=== PATIENT | female | born 1955 | race Caucasian/White ===

== ENCOUNTER 2019-06-30 11:00 | Inpatient (IN) | payer OTHER ==
[2019-07-18 12:54] VITALS: BMI 39.0
[2019-07-21] MEDS ORDERED: HEPARIN NA (PORCINE) 5,000 UNITS/ML 1ML VIAL ONE (07:16)
[2019-07-21] MEDS ORDERED: THROMBIN (BOVINE) 5,000 UNIT VIAL TP ONE (07:16)
[2019-07-21] MEDS ORDERED: BENZOIN TINCTURE SWABSTICK TP ONE (07:16)
[2019-07-21] MEDS ORDERED: ROCURONIUM BROMIDE 50 MG/5 ML SYRINGE ONE (07:30)
[2019-07-21] MEDS ORDERED: PROPOFOL 20 ML ONE ×4 (07:30)
[2019-07-21] MEDS ORDERED: KETAMINE HCL 200 MG/20 ML VIAL ONE (07:30)
[2019-07-21] MEDS ORDERED: SUCCINYLCHOLINE CHLORIDE 200 MG/10 ML SYRINGE ONE (07:30)
[2019-07-21] MEDS ORDERED: ceFAZolin SODIUM 1 GM VIAL ONE ×2 (07:31→13:00)
[2019-07-21] MEDS ORDERED: VANCOMYCIN 1,000 MG VIAL (RESTRICTED TO ID ONLY) ONE (07:31)
[2019-07-21] MEDS ORDERED: ONDANSETRON 4 MG/2 ML VIAL ONE (07:31)
[2019-07-21] MEDS ORDERED: LIDOCAINE HCL/PF 2% SDV 5ML VIAL ONE ×2 (07:31→07:32)
[2019-07-21] MEDS ORDERED: DEXAMETHASONE SOD PHOSPHATE 4 MG/1 ML VIAL ONE (07:31)
[2019-07-21] MEDS ORDERED: SODIUM CHLORIDE 0.9% P/F 10 ML VIAL IJ ONE (07:31)
[2019-07-21] MEDS ORDERED: MIDAZOLAM HCL 2 MG/2 ML SINGLE DOSE VIAL ONE (07:41)
[2019-07-21] MEDS ORDERED: IBUPROFEN 800 MG/8 ML IJ IVPB ONE (08:20)
[2019-07-21] MEDS ORDERED: ONDANSETRON 4 MG/2 ML VIAL IVPUSH PRN ×2 (08:55→10:28)
[2019-07-21] MEDS ORDERED: oxyCODONE HCL 5 MG TABLET PO PRN (08:55)
--- NOTE | 2019-07-21 10:26 | PN ---
Progress Note (short form) - Note Progress Note: 63F pre-op for thoraco-lumbar instrumented fusion; case cancelled due to florid B/L lower extremity cellulitis. -Pain control. -DVT PPx: -Chemical: Hold as patient is pre-op for spine surgery. -Mechanical: NONE d/t LE swelling and lymphedema. -Incentive spirometry q15 min. -Empiric antibiotics. -PT/OT/Rehab, OOB. -WBAT LLE. -f/u all labs: CBC, Chem 20, ESR, CRP. -Diabetic Diet as tolerated. -Care per medical hospitalist: Dr. Ochoa. -Medical plan discussed with and understood by patient. -Will follow. Jordan Vivas MD (Orthopaedic Surgery).
[2019-07-21] MEDS ORDERED: LACTATED RINGERS SOLUTION 1,000 ML IV SCH (10:30)
[2019-07-21] MEDS ORDERED: IPRATROPIUM BR 0.02% 0.5 MG/2.5 ML VIAL.NEB. NEB PRN (10:33)
[2019-07-21 11:09] LABS: BASO % 0.6 % (0-2.0); EOS % 0.7 % (0-4.5); HEMATOCRIT 32.9 % (32.4-45.2); HEMOGLOBIN 10.6 GM/dL (10.7-15.3); LYMPH % 26.2 % (8-40); MCH 26.2 pg (25.7-33.7); MCHC 32.2 g/dl (32.0-36.0); MEAN CELL VOLUME 81.4 fl (80-96); MEAN PLT VOLUME 7.2 fl (7.5-11.1); MONO % 9.7 % (3.8-10.2); NEUT % 62.8 % (42.8-82.8); PLATELET COUNT 138 K/MM3 (134-434); RBC 4.05 M/mm3 (3.60-5.2); WHITE BLOOD COUNT 4.5 K/mm3 (4.0-10.0)
[2019-07-21 11:37] LABS: ALBUMIN 3.7 g/dl (3.4-5.0); BILIRUBIN,TOTAL 0.4 mg/dL (0.2-1); BLOOD UREA NITROGEN 41.7 mg/dL (7-18); CALCIUM 9.2 mg/dL (8.5-10.1); CREATININE 1.3 mg/dL (0.55-1.3); POTASSIUM 4.2 mmol/L (3.5-5.1); TOT PROT 6.3 g/dl (6.4-8.2)
[2019-07-21] MEDS: ceFAZolin 2 GRAM PREMIX BAG IVPB SCH ×3 (13:05→22:12)
[2019-07-21 13:07] LABS: ANISOCYTOSIS 1+; MACROCYTOSIS 1+; PLATELET ESTIMATE DECREASED
[2019-07-21] MEDS ORDERED: PATIENT'S OWN MEDICATION (NON-FORMULARY) (Benzonatate [Benzonatate] 200 MG) PO SCH (14:00)
[2019-07-21] MEDS ORDERED: PATIENT'S OWN MEDICATION (NON-FORMULARY) (Ipratropium/Albuterol Sulfate [Combivent Respima IH SCH (14:00)
[2019-07-21] MEDS: LACTATED RINGERS SOLUTION 1,000 ML IV SCH (14:51)
[2019-07-21] MEDS ORDERED: AMPICILLIN NA/SULBACTAM NA 3 GM in SODIUM CHLORIDE 100 ML IVPB SCH (15:00)
[2019-07-21] MEDS ORDERED: PT OWN MED DRAWER 7, Y5N ONE (15:29)
[2019-07-21] MEDS: TIZANIDINE HCL 2 MG TABLET PO SCH ×2 (19:02→22:12)
--- NOTE | 2019-07-21 21:57 | CONSULT ---
Consult Consult Specialty:: IM Reason for Consultation:: POST op medical management - History of Present Illness Chief Complaint: back pain - History Source History Provided By: Patient Limitations to Obtaining History: No Limitations - Alcohol/Substance Use Hx Alcohol Use: Yes (rarely) - Smoking History Smoking history: Never smoked Home Medications - Allergies Allergies/Adverse Reactions: Allergies Allergy/AdvReac Type Severity Reaction Status Date / Time amitriptyline [From Elavil] Allergy Mild Rash Verified 07/21/19 07:27 ketorolac [From Toradol] Allergy Mild Rash Verified 07/21/19 07:27 - Home Medications Home Medications: Ambulatory Orders Aripiprazole [Abilify] 1 tab PO HS 07/18/19 Aspirin [ASA -] 81 mg PO DAILY 07/18/19 Atorvastatin Ca [Lipitor] 20 mg PO DAILY 07/18/19 Benzonatate 200 mg PO TID 07/18/19 Budesonide/Formeterol Fumarate [SYMBICORT 160/4.5mcg -] 2 inh PO BID 07/18/19 Cholecalciferol (Vitamin D3) [Vitamin D3 -] 1,000 unit PO DAILY 07/18/19 Cyanocobalamin [Vitamin B12 -] 1,000 mcg PO DAILY 07/18/19 Empagliflozin [Jardiance] 10 mg PO DAILY 07/18/19 Ferrous Sulfate [Feosol] 325 mg PO DAILY 07/18/19 Fluticasone Propionate [Allergy Relief] 15.8 ml NS BID 07/18/19 Hydrochlorothiazide [Hctz -] 12.5 mg PO DAILY 07/18/19 Hydroxyzine HCl 25 mg PO HS 07/18/19 Insulin Glargine,Hum.rec.anlog [Lantus Solostar PEN (NF)] 10 units SQ BID Ipratropium 0.02% Nebulizer [Atrovent 0.02% Nebulizer -] 1 amp NEB QID PRN 07/18 Ipratropium/Albuterol Sulfate [Combivent Respimat Inhal [place]] 4 gm IH QID 07/18 Liraglutide [Victoza -] 0.6 mg SQ DAILY@0700 07/18/19 Loratadine [Claritin] 10 mg PO DAILY 07/18/19 Lubiprostone [Amitiza] 24 mcg PO BID 07/18/19 Mupirocin Cream [Bactroban 2% Cream -] 1 applic TP PRN 07/18/19 Paroxetine HCl 10 mg PO DAILY 07/18/19 Tizanidine HCl 2 mg PO TID 07/18/19 Torsemide [Demadex] 10 mg PO DAILY 07/18/19 Lisinopril 5 mg PO DAILY 07/21/19 Family Disease History - Family Disease History Family History: Unremarkable Review of Systems - Review of Systems Eyes: reports: No Symptoms HENT: reports: No Symptoms Neck: reports: No Symptoms Cardiovascular: reports: No Symptoms Respiratory: reports: No Symptoms Gastrointestinal: reports: No Symptoms Genitourinary: reports: No Symptoms Musculoskeletal: reports: Back Pain Integumentary: reports: Change in Color, Erythema Neurological: reports: No Symptoms Endocrine: reports: No Symptoms Hematology/Lymphatic: reports: No Symptoms Psychiatric: reports: No Symptoms Physical Exam Vital Signs: Vital Signs Temperature 98.1 F 07/21/19 20:10 Pulse Rate 71 07/21/19 20:10 Respiratory Rate 20 07/21/19 20:12 Blood Pressure 107/55 L 07/21/19 20:10 O2 Sat by Pulse Oximetry (%) 96 07/21/19 13:00 Constitutional: Yes: Anxious Eyes: Yes: WNL HENT: Yes: WNL Neck: Yes: WNL Cardiovascular: Yes: WNL Respiratory: Yes: WNL Gastrointestinal: Yes: WNL ...Rectal Exam: Yes: Deferred Renal/: Yes: WNL Musculoskeletal: Yes: Back Pain Extremities: Yes: WNL Edema: No Peripheral Pulses WNL: Yes Integumentary: Yes: WNL Neurological: Yes: WNL Labs: CBC, BMP 07/21/19 11:00 07/21/19 11:00 Assessment/Plan 63F pre-op for thoraco-lumbar instrumented fusion. case cancelled due to florid B/L lower extremity cellulitis. cont IV antibiotics. ID clearance requested. -cont pain management. incentive spirometry. -GI, DVT prophylaxis. mechanical only. -HLD: on lipitor. -HTN: on HCTZ, lisinopril. -type 2 DM: on levemir, victoza -chronic COPD: cont bronchodilators. -major anxiety and depression: on abilify, paxil. -chronic diastolic CHF: cont lasix, lisinopril -oral diet -OOB as tolerated -will f/u in AM
[2019-07-21] MEDS: hydrOXYzine HCL 25 MG TABLET (FP) PO SCH (22:07)
[2019-07-21] MEDS: ATORVASTATIN CA 20 MG TABLET (FP) PO SCH (22:07)
[2019-07-21] MEDS: ARIPiprazole 5 MG TABLET (FP) PO SCH (22:22)
[2019-07-21] MEDS: FLUTICASONE PROP 0.05% 16 GM NASAL SPRAY NS SCH (22:42)
[2019-07-21] MEDS: BUDESONIDE/FORMETEROL FUMARATE 160/4.5 mcg INHALER IH SCH (22:42)
[2019-07-21] MEDS: INSULIN (LEVEMIR) 100 UNITS/ML UNITS SQ SCH (23:22)
[2019-07-22] MEDS: TIZANIDINE HCL 2 MG TABLET PO SCH ×3 (06:38→22:26)
[2019-07-22] MEDS: ceFAZolin 2 GRAM PREMIX BAG IVPB SCH ×3 (06:38→22:26)
[2019-07-22] MEDS: LACTATED RINGERS SOLUTION 1,000 ML IV SCH ×2 (06:41→09:38)
[2019-07-22] MEDS: INSULIN (LEVEMIR) 100 UNITS/ML UNITS SQ SCH ×2 (06:48→22:31)
[2019-07-22] MEDS: LIRAGLUTIDE 0.6 MG/0.1 ML PEN.INJCTR SQ SCH (06:49)
[2019-07-22 07:08] LABS: BASO % 0.5 % (0-2.0); EOS % 1.7 % (0-4.5); HEMOGLOBIN 10.2 GM/dL (10.7-15.3); LYMPH % 39.2 % (8-40); MEAN CELL VOLUME 81.2 fl (80-96); MEAN PLT VOLUME 7.6 fl (7.5-11.1); MONO % 10.7 % (3.8-10.2); NEUT % 47.9 % (42.8-82.8); PLATELET COUNT 139 K/MM3 (134-434); RBC 3.94 M/mm3 (3.60-5.2); RDW 23.6 % (11.6-15.6); WHITE BLOOD COUNT 3.8 K/mm3 (4.0-10.0)
[2019-07-22 07:21] LABS: BLOOD UREA NITROGEN 33.4 mg/dL (7-18); CALCIUM 8.9 mg/dL (8.5-10.1); CREATININE 1.2 mg/dL (0.55-1.3); POTASSIUM 3.9 mmol/L (3.5-5.1)
[2019-07-22] MEDS: HYDROCHLOROTHIAZIDE 12.5 MG CAPSULE (FP) PO SCH (09:36)
[2019-07-22] MEDS: LISINOPRIL 5 MG TABLET (FP) PO SCH (09:36)
[2019-07-22] MEDS: PARoxetine HCL 10 MG TABLET PO SCH (09:38)
[2019-07-22] MEDS: TORSEMIDE 10 MG TABLET PO SCH (09:38)
[2019-07-22] MEDS ORDERED: PATIENT'S OWN MEDICATION (NON-FORMULARY) (Empagliflozin [Jardiance] 10 MG) PO SCH (10:00)
--- NOTE | 2019-07-22 10:09 | PN ---
Progress Note, Physician Chief Complaint: back pain - Current Medication List Current Medications: Active Medications Aripiprazole (Abilify) 5 mg PO HS [facility] Last Admin: 07/21/19 22:22 Dose: Not Given Atorvastatin Calcium (Lipitor -) 20 mg PO HS [facility] Last Admin: 07/21/19 22:07 Dose: 20 mg Budesonide/Formoterol Fumarate (Symbicort 160/4.5mcg -) 2 puff IH BID [facility] Last Admin: 07/21/19 22:42 Dose: Not Given Cefazolin Sodium/Dextrose (Ancef 2 Gm Premixed Ivpb -) 2 gm IVPB TID [facility] Last Admin: 07/22/19 06:38 Dose: 2 gm Fentanyl (Sublimaze Injection -) 50 mcg IVPUSH [id number] PRN PRN Reason: PAIN-PACU ORDER X 4 DOSES ONLY Fluticasone Propionate (Flonase -) 1 spray NS BID [facility] Last Admin: 07/21/19 22:42 Dose: Not Given Hydrochlorothiazide (Hctz -) 12.5 mg PO DAILY [facility] Last Admin: 07/22/19 09:36 Dose: 12.5 mg Hydroxyzine HCl (Atarax -) 25 mg PO [facility] Last Admin: 07/21/19 22:07 Dose: 25 mg Lactated Ringer's (Lactated Ringers Solution) 1,000 mls @ 75 mls/hr IV ASDIR [facility] Last Admin: 07/22/19 09:38 Dose: Not Given Insulin Detemir (Levemir Vial) 10 units SQ BID@0700,2200 [facility] Last Admin: 07/22/19 06:48 Dose: Not Given Ipratropium [place] (Atrovent 0.02% Nebulizer -) 1 amp NEB Q6H PRN PRN Reason: ASTHMA Liraglutide (Victoza -) 0.6 mg SQ DAILY@0700 [facility] Last Admin: 07/22/19 06:49 Dose: Not Given Lisinopril (Prinivil) 5 mg PO DAILY [facility] Last Admin: 07/22/19 09:36 Dose: 5 mg Mupirocin (Bactroban 2% Cream -) 1 applic TP PRN [facility] Non-Formulary Medication (Benzonatate [Benzonatate]) 200 mg PO TID [facility] Non-Formulary Medication (Empagliflozin [Jardiance]) 10 mg PO DAILY [facility] Non-Formulary Medication (Ipratropium/Albuterol Sulfate [Combivent Respimat 20- 100 Mcg]) 4 gm IH QID [facility] Non-Formulary Medication (Lubiprostone [Amitiza]) 24 mcg PO BID [facility] Ondansetron HCl (Zofran Injection) 4 mg IVPUSH Q6H PRN PRN Reason: NAUSEA AND/OR VOMITING Paroxetine HCl (Paxil -) 10 mg PO DAILY [facility] Last Admin: 07/22/19 09:38 Dose: 10 mg Tizanidine HCl (Tizanidine Hcl) 2 mg PO TID [facility] Last Admin: 07/22/19 06:38 Dose: 2 mg Torsemide (Demadex -) 10 mg PO DAILY [facility] Last Admin: 07/22/19 09:38 Dose: 10 mg - Objective Vital Signs: Vital Signs Temperature 98.2 F 07/22/19 06:00 Pulse Rate 64 07/22/19 06:00 Respiratory Rate 20 07/22/19 06:00 Blood Pressure 112/61 07/22/19 06:00 O2 Sat by Pulse Oximetry (%) 96 07/21/19 13:00 Constitutional: Yes: Well Nourished Eyes: Yes: WNL HENT: Yes: WNL Neck: Yes: WNL Cardiovascular: Yes: WNL Respiratory: Yes: WNL Gastrointestinal: Yes: WNL ...Rectal Exam: Yes: WNL Genitourinary: Yes: WNL Musculoskeletal: Yes: Back Pain Extremities: Yes: Erythema Edema: Yes Peripheral Pulses WNL: No Integumentary: Yes: WNL Neurological: Yes: WNL ...Motor Strength: WNL Psychiatric: Yes: WNL Labs: CBC, BMP 07/22/19 06:30 07/22/19 06:30 Assessment/Plan 63F pre-op for thoraco-lumbar instrumented fusion. case cancelled due to florid B/L lower extremity cellulitis. cont IV antibiotics. ID clearance requested. -cont pain management. incentive spirometry. -GI, DVT prophylaxis. mechanical only. -HLD: on lipitor. -HTN: on HCTZ, lisinopril. -type 2 DM: on levemir, victoza -chronic COPD: cont bronchodilators. -major anxiety and depression: on abilify, paxil. -chronic diastolic CHF: cont torsemide, lisinopril -oral diet -OOB as tolerated -assessment and plan discussed with pt . labs and meds reviewed phone calls answered throughout the day.
[2019-07-22 10:53] LABS: BASO % 0.7 % (0-2.0); EOS % 1.2 % (0-4.5); HEMATOCRIT 33.4 % (32.4-45.2); HEMOGLOBIN 10.7 GM/dL (10.7-15.3); LYMPH % 26.7 % (8-40); MCH 26.3 pg (25.7-33.7); MCHC 32.2 g/dl (32.0-36.0); MEAN CELL VOLUME 81.7 fl (80-96); MEAN PLT VOLUME 7.6 fl (7.5-11.1); MONO % 8.4 % (3.8-10.2); PLATELET COUNT 143 K/MM3 (134-434); RBC 4.08 M/mm3 (3.60-5.2); RDW 23.3 % (11.6-15.6); WHITE BLOOD COUNT 3.5 K/mm3 (4.0-10.0)
[2019-07-22] MEDS: BUDESONIDE/FORMETEROL FUMARATE 160/4.5 mcg INHALER IH SCH ×2 (11:17→22:31)
--- NOTE | 2019-07-22 11:17 | CON.ID ---
Consult Consult Specialty:: infectious diseases Referred by:: Reason for Consultation:: b/l cellulitis of the leg - History of Present Illness Chief Complaint: back pain,b/l cellulitis of the leg History of Present Illness: 63F pre-op for thoraco-lumbar instrumented fusion,patient mentions that she has had back pain for some time and not able to get up she was seen by neurosurgery and planned for thoraco lumbar fusion. patient also has b/l cellulitis of the leg and this has been going on for 3 months and patient did receive abx which helped her a bit and then her legs again became cellulitis she has been using radha wraps on it patient is planned to undergo surgery and patient needs to be treated for cellulits currently patient is stable denies any fever - History Source History Provided By: Patient Limitations to Obtaining History: No Limitations - Alcohol/Substance Use Hx Alcohol Use: Yes (rarely) - Smoking History Smoking history: Never smoked Home Medications - Allergies Allergies/Adverse Reactions: Allergies Allergy/AdvReac Type Severity Reaction Status Date / Time amitriptyline [From Elavil] Allergy Mild Rash Verified 07/21/19 07:27 ketorolac [From Toradol] Allergy Mild Rash Verified 07/21/19 07:27 - Home Medications Home Medications: Ambulatory Orders Aripiprazole [Abilify] 1 tab PO HS 07/18/19 Aspirin [ASA -] 81 mg PO DAILY 07/18/19 Atorvastatin Ca [Lipitor] 20 mg PO DAILY 07/18/19 Benzonatate 200 mg PO TID 07/18/19 Budesonide/Formeterol Fumarate [SYMBICORT 160/4.5mcg -] 2 inh PO BID 07/18/19 Cholecalciferol (Vitamin D3) [Vitamin D3 -] 1,000 unit PO DAILY 07/18/19 Cyanocobalamin [Vitamin B12 -] 1,000 mcg PO DAILY 07/18/19 Empagliflozin [Jardiance] 10 mg PO DAILY 07/18/19 Ferrous Sulfate [Feosol] 325 mg PO DAILY 07/18/19 Fluticasone Propionate [Allergy Relief] 15.8 ml NS BID 07/18/19 Hydrochlorothiazide [Hctz -] 12.5 mg PO DAILY 07/18/19 Hydroxyzine HCl 25 mg PO HS 07/18/19 Insulin Glargine,Hum.rec.anlog [Lantus Solostar PEN (NF)] 10 units SQ BID Ipratropium 0.02% Nebulizer [Atrovent 0.02% Nebulizer -] 1 amp NEB QID PRN 07/18 Ipratropium/Albuterol Sulfate [Combivent Respimat Inhal [place]] 4 gm IH QID 07/18 Liraglutide [Victoza -] 0.6 mg SQ DAILY@0700 07/18/19 Loratadine [Claritin] 10 mg PO DAILY 07/18/19 Lubiprostone [Amitiza] 24 mcg PO BID 07/18/19 Mupirocin Cream [Bactroban 2% Cream -] 1 applic TP PRN 07/18/19 Paroxetine HCl 10 mg PO DAILY 07/18/19 Tizanidine HCl 2 mg PO TID 07/18/19 Torsemide [Demadex] 10 mg PO DAILY 07/18/19 Lisinopril 5 mg PO DAILY 07/21/19 Review of Systems - Review of Systems Constitutional: reports: Other Eyes: reports: No Symptoms HENT: reports: No Symptoms Neck: reports: No Symptoms Cardiovascular: reports: No Symptoms Respiratory: reports: No Symptoms Gastrointestinal: reports: No Symptoms Genitourinary: reports: No Symptoms Musculoskeletal: reports: Back Pain Integumentary: reports: Change in Color, Erythema, Other Neurological: reports: No Symptoms Endocrine: reports: No Symptoms Hematology/Lymphatic: reports: No Symptoms Psychiatric: reports: No Symptoms Physical Exam Vital Signs: Vital Signs Temperature 98.4 F 07/22/19 10:00 Pulse Rate 66 07/22/19 10:00 Respiratory Rate 20 07/22/19 10:00 Blood Pressure 121/73 07/22/19 10:00 O2 Sat by Pulse Oximetry (%) 96 07/21/19 13:00 Constitutional: Yes: Well Nourished, Calm, Mild Distress Eyes: Yes: Conjunctiva Clear Cardiovascular: Yes: Regular Rate and Rhythm Respiratory: Yes: Regular, CTA Bilaterally Gastrointestinal: Yes: Normal Bowel Sounds, Soft Musculoskeletal: Yes: Back Pain Extremities: Yes: Other (b/l erythema left worse than right) Integumentary: Yes: Erythema (b/l erythema of the legs), Venous Stasis Changes Neurological: Yes: Alert, Oriented Psychiatric: Yes: Alert, Oriented Labs: CBC, BMP 07/22/19 09:55 Assessment/Plan this patient with multiple medical issues now coming with cellulitis of the leg who is planned for surgery patient has pretty bad cellulitis of the leg patient has been started on anceff at the moment surgery should be on hold till her cellulitis improves we will continue current abx if the leg does not improve we will add vanco and see continue abx monitor restst as per the team
[2019-07-22] MEDS: FLUTICASONE PROP 0.05% 16 GM NASAL SPRAY NS SCH ×2 (11:18→22:31)
[2019-07-22 11:29] LABS: ALBUMIN 3.6 g/dl (3.4-5.0); ALK PHOS 87 U/L (45-117); ANION GAP 8 MMOL/L (8-16); BILIRUBIN,TOTAL 0.3 mg/dL (0.2-1); BLOOD UREA NITROGEN 29.6 mg/dL (7-18); CALCIUM 8.7 mg/dL (8.5-10.1); CHLORIDE 100 mmol/L (98-107); CO2 29 mmol/L (21-32); CREATININE 1.2 mg/dL (0.55-1.3); GLUCOSE,RANDOM 129 mg/dL (74-106); POTASSIUM 4.1 mmol/L (3.5-5.1); SGOT/AST 21 U/L (15-37); SGPT/ALT 19 U/L (13-61); SODIUM 136 mmol/L (136-145); TOT PROT 6.3 g/dl (6.4-8.2)
[2019-07-22] MEDS: oxyCODONE HCL 5 MG TABLET PO PRN ×2 (11:43→20:20)
[2019-07-22] MEDS ORDERED: PT OWN MED DRAWER 7, Y5N ONE (22:22)
[2019-07-22] MEDS: ARIPiprazole 5 MG TABLET (FP) PO SCH (22:25)
[2019-07-22] MEDS: ATORVASTATIN CA 20 MG TABLET (FP) PO SCH (22:25)
[2019-07-22] MEDS: hydrOXYzine HCL 25 MG TABLET (FP) PO SCH (22:27)
[2019-07-23] MEDS: INSULIN (LEVEMIR) 100 UNITS/ML UNITS SQ SCH ×2 (06:42→21:08)
[2019-07-23] MEDS: ceFAZolin 2 GRAM PREMIX BAG IVPB SCH ×3 (06:42→21:09)
[2019-07-23] MEDS: TIZANIDINE HCL 2 MG TABLET PO SCH ×3 (06:42→21:19)
[2019-07-23] MEDS: LIRAGLUTIDE 0.6 MG/0.1 ML PEN.INJCTR SQ SCH (06:44)
[2019-07-23] MEDS: LACTATED RINGERS SOLUTION 1,000 ML IV SCH ×2 (06:46→08:55)
[2019-07-23] MEDS ORDERED: PT OWN MED DRAWER 7, Y5N ONE ×3 (06:52→21:06)
[2019-07-23] MEDS: HYDROCHLOROTHIAZIDE 12.5 MG CAPSULE (FP) PO SCH (09:42)
[2019-07-23] MEDS: FLUTICASONE PROP 0.05% 16 GM NASAL SPRAY NS SCH ×2 (09:43→21:21)
[2019-07-23] MEDS: LISINOPRIL 5 MG TABLET (FP) PO SCH (09:43)
[2019-07-23] MEDS: BUDESONIDE/FORMETEROL FUMARATE 160/4.5 mcg INHALER IH SCH ×2 (09:43→21:21)
[2019-07-23] MEDS: PARoxetine HCL 10 MG TABLET PO SCH (09:43)
[2019-07-23] MEDS: TORSEMIDE 10 MG TABLET PO SCH (09:43)
[2019-07-23] MEDS: oxyCODONE HCL 5 MG TABLET PO PRN ×2 (09:51→20:07)
[2019-07-23 10:13] LABS: BASO % 0.7 % (0-2.0); EOS % 1.2 % (0-4.5); HEMOGLOBIN 11.4 GM/dL (10.7-15.3); LYMPH % 34.5 % (8-40); MCH 26.6 pg (25.7-33.7); MCHC 32.7 g/dl (32.0-36.0); MEAN CELL VOLUME 81.4 fl (80-96); MEAN PLT VOLUME 7.6 fl (7.5-11.1); MONO % 8.7 % (3.8-10.2); NEUT % 54.9 % (42.8-82.8); PLATELET COUNT 145 K/MM3 (134-434); RDW 23.5 % (11.6-15.6); WHITE BLOOD COUNT 3.4 K/mm3 (4.0-10.0)
[2019-07-23 10:31] LABS: ALBUMIN 3.7 g/dl (3.4-5.0); ALK PHOS 97 U/L (45-117); ANION GAP 7 MMOL/L (8-16); BILIRUBIN,TOTAL 0.4 mg/dL (0.2-1); BLOOD UREA NITROGEN 26.2 mg/dL (7-18); CALCIUM 8.9 mg/dL (8.5-10.1); CHLORIDE 99 mmol/L (98-107); CO2 30 mmol/L (21-32); CREATININE 1.1 mg/dL (0.55-1.3); GLUCOSE,RANDOM 131 mg/dL (74-106); SGOT/AST 23 U/L (15-37); SGPT/ALT 13 U/L (13-61); SODIUM 136 mmol/L (136-145); TOT PROT 6.6 g/dl (6.4-8.2)
--- NOTE | 2019-07-23 17:46 | PN ---
Progress Note, Physician History of Present Illness: patient doing well legs ae starting to improve - Current Medication List Current Medications: Active Medications Aripiprazole (Abilify) 5 mg PO HS [facility] Last Admin: 07/22/19 22:25 Dose: 5 mg Atorvastatin Calcium (Lipitor -) 20 mg PO HS [facility] Last Admin: 07/22/19 22:25 Dose: 20 mg Budesonide/Formoterol Fumarate (Symbicort 160/4.5mcg -) 2 puff IH BID [facility] Last Admin: 07/23/19 09:43 Dose: 2 puff Cefazolin Sodium/Dextrose (Ancef 2 Gm Premixed Ivpb -) 2 gm IVPB TID [facility] Last Admin: 07/23/19 14:26 Dose: 2 gm Fentanyl (Sublimaze Injection -) 50 mcg IVPUSH [id number] PRN PRN Reason: PAIN-PACU ORDER X 4 DOSES ONLY Fluticasone Propionate (Flonase -) 1 spray NS BID [facility] Last Admin: 07/23/19 09:43 Dose: 1 spray Hydrochlorothiazide (Hctz -) 12.5 mg PO DAILY [facility] Last Admin: 07/23/19 09:42 Dose: 12.5 mg Hydroxyzine HCl (Atarax -) 25 mg PO [facility] Last Admin: 07/22/19 22:27 Dose: 25 mg Lactated Ringer's (Lactated Ringers Solution) 1,000 mls @ 75 mls/hr IV ASDIR [facility] Last Admin: 07/23/19 08:55 Dose: 75 mls/hr Insulin Detemir (Levemir Vial) 10 units SQ BID@0700,2200 [facility] Last Admin: 07/23/19 06:42 Dose: 10 units Ipratropium [place] (Atrovent 0.02% Nebulizer -) 1 amp NEB Q6H PRN PRN Reason: ASTHMA Liraglutide (Victoza -) 0.6 mg SQ DAILY@0700 [facility] Last Admin: 07/23/19 06:44 Dose: 0.6 mg Lisinopril (Prinivil) 5 mg PO DAILY [facility] Last Admin: 07/23/19 09:43 Dose: 5 mg Mupirocin (Bactroban 2% Cream -) 1 applic TP PRN [facility] Non-Formulary Medication (Benzonatate [Benzonatate]) 200 mg PO TID [facility] Non-Formulary Medication (Empagliflozin [Jardiance]) 10 mg PO DAILY [facility] Non-Formulary Medication (Ipratropium/Albuterol Sulfate [Combivent Respimat 20- 100 Mcg]) 4 gm IH QID [facility] Non-Formulary Medication (Lubiprostone [Amitiza]) 24 mcg PO BID [facility] Ondansetron HCl (Zofran Injection) 4 mg IVPUSH Q6H PRN PRN Reason: NAUSEA AND/OR VOMITING Oxycodone HCl (Roxicodone -) 10 mg PO Q4H PRN PRN Reason: PAIN 6-10 Last Admin: 07/23/19 09:51 Dose: 10 mg Paroxetine HCl (Paxil -) 10 mg PO DAILY [facility] Last Admin: 07/23/19 09:43 Dose: 10 mg Tizanidine HCl (Tizanidine Hcl) 2 mg PO TID [facility] Last Admin: 07/23/19 14:25 Dose: 2 mg Torsemide (Demadex -) 10 mg PO DAILY [facility] Last Admin: 07/23/19 09:43 Dose: 10 mg - Objective Vital Signs: Vital Signs Temperature 98.4 F 07/23/19 16:20 Pulse Rate 63 07/23/19 16:20 Respiratory Rate 18 07/23/19 16:20 Blood Pressure 109/60 07/23/19 16:20 O2 Sat by Pulse Oximetry (%) 98 07/22/19 21:00 Constitutional: Yes: No Distress, Calm Cardiovascular: Yes: S1, S2 Respiratory: Yes: Regular, CTA Bilaterally Gastrointestinal: Yes: Normal Bowel Sounds, Soft Musculoskeletal: Yes: Other Extremities: Yes: Erythema (improving), Other Integumentary: Yes: Erythema (improving) Neurological: Yes: Alert, Oriented Psychiatric: Yes: Alert, Oriented Labs: CBC, BMP 07/23/19 09:40 07/23/19 09:40 Assessment/Plan plan continue abx improving will see how the patient does rest as per the team
--- NOTE | 2019-07-23 19:57 | PN ---
Progress Note, Physician Chief Complaint: back pain - Current Medication List Current Medications: Active Medications Aripiprazole (Abilify) 5 mg PO HS [facility] Last Admin: 07/22/19 22:25 Dose: 5 mg Atorvastatin Calcium (Lipitor -) 20 mg PO HS [facility] Last Admin: 07/22/19 22:25 Dose: 20 mg Budesonide/Formoterol Fumarate (Symbicort 160/4.5mcg -) 2 puff IH BID [facility] Last Admin: 07/23/19 09:43 Dose: 2 puff Cefazolin Sodium/Dextrose (Ancef 2 Gm Premixed Ivpb -) 2 gm IVPB TID [facility] Last Admin: 07/23/19 14:26 Dose: 2 gm Fentanyl (Sublimaze Injection -) 50 mcg IVPUSH [id number] PRN PRN Reason: PAIN-PACU ORDER X 4 DOSES ONLY Fluticasone Propionate (Flonase -) 1 spray NS BID [facility] Last Admin: 07/23/19 09:43 Dose: 1 spray Hydrochlorothiazide (Hctz -) 12.5 mg PO DAILY [facility] Last Admin: 07/23/19 09:42 Dose: 12.5 mg Hydroxyzine HCl (Atarax -) 25 mg PO HS [facility] Last Admin: 07/22/19 22:27 Dose: 25 mg Lactated Ringer's (Lactated Ringers Solution) 1,000 mls @ 75 mls/hr IV ASDIR [facility] Last Admin: 07/23/19 08:55 Dose: 75 mls/hr Insulin Detemir (Levemir Vial) 10 units SQ BID@0700,2200 [facility] Last Admin: 07/23/19 06:42 Dose: 10 units Ipratropium [place] (Atrovent 0.02% Nebulizer -) 1 amp NEB Q6H PRN PRN Reason: ASTHMA Liraglutide (Victoza -) 0.6 mg SQ DAILY@0700 [facility] Last Admin: 07/23/19 06:44 Dose: 0.6 mg Lisinopril (Prinivil) 5 mg PO DAILY [facility] Last Admin: 07/23/19 09:43 Dose: 5 mg Mupirocin (Bactroban 2% Cream -) 1 applic TP PRN [facility] Non-Formulary Medication (Benzonatate [Benzonatate]) 200 mg PO TID [facility] Non-Formulary Medication (Empagliflozin [Jardiance]) 10 mg PO DAILY [facility] Non-Formulary Medication (Ipratropium/Albuterol Sulfate [Combivent Respimat 20- 100 Mcg]) 4 gm IH QID [facility] Non-Formulary Medication (Lubiprostone [Amitiza]) 24 mcg PO BID [facility] Ondansetron HCl (Zofran Injection) 4 mg IVPUSH Q6H PRN PRN Reason: NAUSEA AND/OR VOMITING Oxycodone HCl (Roxicodone -) 10 mg PO Q4H PRN PRN Reason: PAIN 6-10 Last Admin: 07/23/19 09:51 Dose: 10 mg Paroxetine HCl (Paxil -) 10 mg PO DAILY [facility] Last Admin: 07/23/19 09:43 Dose: 10 mg Tizanidine HCl (Tizanidine Hcl) 2 mg PO TID [facility] Last Admin: 07/23/19 14:25 Dose: 2 mg Torsemide (Demadex -) 10 mg PO DAILY [facility] Last Admin: 07/23/19 09:43 Dose: 10 mg - Objective Vital Signs: Vital Signs Temperature 98.4 F 07/23/19 16:20 Pulse Rate 63 07/23/19 16:20 Respiratory Rate 18 07/23/19 16:20 Blood Pressure 109/60 07/23/19 16:20 O2 Sat by Pulse Oximetry (%) 98 07/22/19 21:00 Constitutional: Yes: Well Nourished, No Distress, Calm Eyes: Yes: WNL HENT: Yes: WNL Neck: Yes: WNL Cardiovascular: Yes: WNL Respiratory: Yes: WNL Gastrointestinal: Yes: WNL ...Rectal Exam: Yes: Deferred Genitourinary: Yes: WNL Musculoskeletal: Yes: WNL Extremities: Yes: Erythema Edema: Yes Peripheral Pulses WNL: Yes Integumentary: Yes: Erythema Neurological: Yes: WNL ...Motor Strength: WNL Psychiatric: Yes: WNL Labs: CBC, BMP 07/23/19 09:40 07/23/19 09:40 Assessment/Plan 63F pre-op for thoraco-lumbar instrumented fusion. case cancelled due to florid B/L lower extremity cellulitis. cont IV antibiotics. ID clearance requested. hopefully to be cleared by the end of the week. -cont pain management. incentive spirometry. -GI, DVT prophylaxis. mechanical only. -HLD: on lipitor. -HTN: on HCTZ, lisinopril. -type 2 DM: on levemir, victoza, RISS. -chronic COPD: cont bronchodilators. -major anxiety and depression: on abilify, paxil. -chronic diastolic CHF: cont torsemide, lisinopril -oral diet -OOB as tolerated -assessment and plan discussed with pt . labs and meds reviewed phone calls answered throughout the day. 25 min
[2019-07-23] MEDS: ATORVASTATIN CA 20 MG TABLET (FP) PO SCH (21:09)
[2019-07-23] MEDS: ARIPiprazole 5 MG TABLET (FP) PO SCH (21:09)
[2019-07-23] MEDS: hydrOXYzine HCL 25 MG TABLET (FP) PO SCH (21:09)
[2019-07-24] MEDS ORDERED: PT OWN MED DRAWER 7, Y5N ONE ×3 (05:03→15:03)
[2019-07-24] MEDS: TIZANIDINE HCL 2 MG TABLET PO SCH ×3 (05:09→21:35)
[2019-07-24] MEDS: ceFAZolin 2 GRAM PREMIX BAG IVPB SCH ×3 (05:11→21:31)
[2019-07-24] MEDS: INSULIN (LEVEMIR) 100 UNITS/ML UNITS SQ SCH ×2 (07:35→21:33)
[2019-07-24] MEDS: LIRAGLUTIDE 0.6 MG/0.1 ML PEN.INJCTR SQ SCH (07:35)
[2019-07-24] MEDS ORDERED: INSULIN (LEVEMIR) 100 UNITS/ML UNITS SQ ONE (07:58)
[2019-07-24] MEDS: oxyCODONE HCL 5 MG TABLET PO PRN ×2 (09:28→19:50)
[2019-07-24] MEDS: LISINOPRIL 5 MG TABLET (FP) PO SCH (09:30)
[2019-07-24] MEDS: PARoxetine HCL 10 MG TABLET PO SCH (09:30)
[2019-07-24] MEDS: HYDROCHLOROTHIAZIDE 12.5 MG CAPSULE (FP) PO SCH (09:30)
[2019-07-24] MEDS: LACTATED RINGERS SOLUTION 1,000 ML IV SCH (09:30)
[2019-07-24] MEDS: TORSEMIDE 10 MG TABLET PO SCH (09:30)
[2019-07-24] MEDS: FLUTICASONE PROP 0.05% 16 GM NASAL SPRAY NS SCH ×2 (09:31→21:32)
[2019-07-24] MEDS: BUDESONIDE/FORMETEROL FUMARATE 160/4.5 mcg INHALER IH SCH ×2 (09:33→21:32)
--- NOTE | 2019-07-24 10:15 | PN ---
Progress Note, Physician History of Present Illness: improving no complaints - Current Medication List Current Medications: Active Medications Aripiprazole (Abilify) 5 mg PO HS [facility] Last Admin: 07/23/19 21:09 Dose: 5 mg Atorvastatin Calcium (Lipitor -) 20 mg PO HS [facility] Last Admin: 07/23/19 21:09 Dose: 20 mg Budesonide/Formoterol Fumarate (Symbicort 160/4.5mcg -) 2 puff IH BID [facility] Last Admin: 07/24/19 09:33 Dose: 2 puff Cefazolin Sodium/Dextrose (Ancef 2 Gm Premixed Ivpb -) 2 gm IVPB TID [facility] Last Admin: 07/24/19 05:11 Dose: 2 gm Doxycycline Hyclate (Vibramycin -) 100 mg PO BID@1000,1800 [facility] Fentanyl (Sublimaze Injection -) 50 mcg IVPUSH [id number] PRN PRN Reason: PAIN-PACU ORDER X 4 DOSES ONLY Fluticasone Propionate (Flonase -) 1 spray NS BID [facility] Last Admin: 07/24/19 09:31 Dose: 1 spray Hydrochlorothiazide (Hctz -) 12.5 mg PO DAILY [facility] Last Admin: 07/24/19 09:30 Dose: 12.5 mg Hydroxyzine HCl (Atarax -) 25 mg PO HS [facility] Last Admin: 07/23/19 21:09 Dose: 25 mg Lactated Ringer's (Lactated Ringers Solution) 1,000 mls @ 75 mls/hr IV ASDIR [facility] Last Admin: 07/24/19 09:30 Dose: 75 mls/hr Insulin Detemir (Levemir Vial) 10 units SQ BID@0700,2200 [facility] Last Admin: 07/24/19 07:35 Dose: Not Given Ipratropium [place] (Atrovent 0.02% Nebulizer -) 1 amp NEB Q6H PRN PRN Reason: ASTHMA Liraglutide (Victoza -) 0.6 mg SQ DAILY@0700 [facility] Last Admin: 07/24/19 07:35 Dose: Not Given Lisinopril (Prinivil) 5 mg PO DAILY [facility] Last Admin: 07/24/19 09:30 Dose: 5 mg Mupirocin (Bactroban 2% Cream -) 1 applic TP PRN [facility] Non-Formulary Medication (Benzonatate [Benzonatate]) 200 mg PO TID [facility] Non-Formulary Medication (Empagliflozin [Jardiance]) 10 mg PO DAILY [facility] Non-Formulary Medication (Ipratropium/Albuterol Sulfate [Combivent Respimat 20- 100 Mcg]) 4 gm IH QID [facility] Non-Formulary Medication (Lubiprostone [Amitiza]) 24 mcg PO BID [facility] Ondansetron HCl (Zofran Injection) 4 mg IVPUSH Q6H PRN PRN Reason: NAUSEA AND/OR VOMITING Oxycodone HCl (Roxicodone -) 10 mg PO Q4H PRN PRN Reason: PAIN 6-10 Last Admin: 07/24/19 09:28 Dose: 10 mg Paroxetine HCl (Paxil -) 10 mg PO DAILY [facility] Last Admin: 07/24/19 09:30 Dose: 10 mg Tizanidine HCl (Tizanidine Hcl) 2 mg PO TID [facility] Last Admin: 07/24/19 05:09 Dose: 2 mg Torsemide (Demadex -) 10 mg PO DAILY [facility] Last Admin: 07/24/19 09:30 Dose: 10 mg - Objective Vital Signs: Vital Signs Temperature 97.5 F L 07/24/19 05:58 Pulse Rate 65 07/24/19 05:58 Respiratory Rate 18 07/24/19 05:58 Blood Pressure 108/70 07/24/19 05:58 O2 Sat by Pulse Oximetry (%) 95 07/23/19 21:00 Constitutional: Yes: No Distress, Calm Cardiovascular: Yes: S1, S2 Respiratory: Yes: Regular, CTA Bilaterally Gastrointestinal: Yes: Normal Bowel Sounds, Soft Musculoskeletal: Yes: WNL Extremities: Yes: Other (cellulitis improving) Integumentary: Yes: Erythema (resolving) Neurological: Yes: Alert, Oriented Psychiatric: Yes: Alert, Oriented Labs: CBC, BMP 07/23/19 09:40 07/23/19 09:40 Assessment/Plan plan continue abx will add doxy orally continue monitoring rest as per the team
[2019-07-24 11:49] LABS: BASO % 0.8 % (0-2.0); HEMOGLOBIN 10.9 GM/dL (10.7-15.3); LYMPH % 26.1 % (8-40); MCH 26.3 pg (25.7-33.7); MCHC 32.1 g/dl (32.0-36.0); MEAN CELL VOLUME 81.7 fl (80-96); MEAN PLT VOLUME 7.6 fl (7.5-11.1); MONO % 10.8 % (3.8-10.2); NEUT % 60.3 % (42.8-82.8); PLATELET COUNT 141 K/MM3 (134-434); RBC 4.16 M/mm3 (3.60-5.2); RDW 23.5 % (11.6-15.6); WHITE BLOOD COUNT 3.6 K/mm3 (4.0-10.0)
[2019-07-24 12:08] LABS: ALBUMIN 3.5 g/dl (3.4-5.0); ALK PHOS 89 U/L (45-117); ANION GAP 3 MMOL/L (8-16); BILIRUBIN,TOTAL 0.3 mg/dL (0.2-1); CALCIUM 9.1 mg/dL (8.5-10.1); CHLORIDE 102 mmol/L (98-107); CO2 33 mmol/L (21-32); CREATININE 1.1 mg/dL (0.55-1.3); GLUCOSE,RANDOM 127 mg/dL (74-106); POTASSIUM 4.1 mmol/L (3.5-5.1); SGOT/AST 23 U/L (15-37); SGPT/ALT 12 U/L (13-61); SODIUM 137 mmol/L (136-145); TOT PROT 6.2 g/dl (6.4-8.2)
--- NOTE | 2019-07-24 16:28 | PN ---
Progress Note, Physician Chief Complaint: back pain - Current Medication List Current Medications: Active Medications Aripiprazole (Abilify) 5 mg PO HS [facility] Last Admin: 07/23/19 21:09 Dose: 5 mg Atorvastatin Calcium (Lipitor -) 20 mg PO HS [facility] Last Admin: 07/23/19 21:09 Dose: 20 mg Budesonide/Formoterol Fumarate (Symbicort 160/4.5mcg -) 2 puff IH BID [facility] Last Admin: 07/24/19 09:33 Dose: 2 puff Cefazolin Sodium/Dextrose (Ancef 2 Gm Premixed Ivpb -) 2 gm IVPB TID [facility] Last Admin: 07/24/19 15:11 Dose: 2 gm Doxycycline Hyclate (Vibramycin -) 100 mg PO BID@1000,1800 [facility] Fentanyl (Sublimaze Injection -) 50 mcg IVPUSH [id number] PRN PRN Reason: PAIN-PACU ORDER X 4 DOSES ONLY Fluticasone Propionate (Flonase -) 1 spray NS BID [facility] Last Admin: 07/24/19 09:31 Dose: 1 spray Hydrochlorothiazide (Hctz -) 12.5 mg PO DAILY [facility] Last Admin: 07/24/19 09:30 Dose: 12.5 mg Hydroxyzine HCl (Atarax -) 25 mg PO [facility] Last Admin: 07/23/19 21:09 Dose: 25 mg Insulin Detemir (Levemir Vial) 10 units SQ BID@0700,2200 [facility] Last Admin: 07/24/19 07:35 Dose: Not Given Ipratropium [place] (Atrovent 0.02% Nebulizer -) 1 amp NEB Q6H PRN PRN Reason: ASTHMA Liraglutide (Victoza -) 0.6 mg SQ DAILY@0700 [facility] Last Admin: 07/24/19 07:35 Dose: Not Given Lisinopril (Prinivil) 5 mg PO DAILY [facility] Last Admin: 07/24/19 09:30 Dose: 5 mg Mupirocin (Bactroban 2% Cream -) 1 applic TP PRN [facility] Non-Formulary Medication (Benzonatate [Benzonatate]) 200 mg PO TID [facility] Non-Formulary Medication (Empagliflozin [Jardiance]) 10 mg PO DAILY [facility] Non-Formulary Medication (Ipratropium/Albuterol Sulfate [Combivent Respimat 20- 100 Mcg]) 4 gm IH QID [facility] Non-Formulary Medication (Lubiprostone [Amitiza]) 24 mcg PO BID [facility] Ondansetron HCl (Zofran Injection) 4 mg IVPUSH Q6H PRN PRN Reason: NAUSEA AND/OR VOMITING Oxycodone HCl (Roxicodone -) 10 mg PO Q4H PRN PRN Reason: PAIN 6-10 Last Admin: 07/24/19 09:28 Dose: 10 mg Paroxetine HCl (Paxil -) 10 mg PO DAILY [facility] Last Admin: 07/24/19 09:30 Dose: 10 mg Tizanidine HCl (Tizanidine Hcl) 2 mg PO TID [facility] Last Admin: 07/24/19 15:11 Dose: 2 mg Torsemide (Demadex -) 10 mg PO DAILY [facility] Last Admin: 07/24/19 09:30 Dose: 10 mg - Objective Vital Signs: Vital Signs Temperature 98.1 F 07/24/19 15:00 Pulse Rate 74 07/24/19 15:00 Respiratory Rate 18 07/24/19 15:00 Blood Pressure 101/56 L 07/24/19 15:00 O2 Sat by Pulse Oximetry (%) 95 07/23/19 21:00 Constitutional: Yes: Well Nourished, No Distress Eyes: Yes: WNL HENT: Yes: WNL Neck: Yes: WNL Cardiovascular: Yes: WNL Respiratory: Yes: WNL Gastrointestinal: Yes: WNL Genitourinary: Yes: WNL Musculoskeletal: Yes: WNL Extremities: Yes: Erythema Edema: Yes Peripheral Pulses WNL: Yes Integumentary: Yes: WNL Neurological: Yes: WNL ...Motor Strength: WNL Psychiatric: Yes: WNL Labs: CBC, BMP 07/24/19 10:54 07/24/19 10:54 Assessment/Plan 63F pre-op for thoraco-lumbar instrumented fusion. case cancelled due to florid B/L lower extremity cellulitis. cont IV antibiotics. ID clearance requested. hopefully to be cleared by the end of the week. -cont pain management. incentive spirometry. -GI, DVT prophylaxis. mechanical only. -HLD: on lipitor. -HTN: on HCTZ, lisinopril. -type 2 DM: on levemir, victoza, RISS. -chronic COPD: cont bronchodilators. -major anxiety and depression: on abilify, paxil. -chronic diastolic CHF: cont torsemide, lisinopril -oral diet -OOB as tolerated -assessment and plan discussed with pt . labs and meds reviewed case discussed with Dr Vivas ortho phone calls answered throughout the day. 25 min
[2019-07-24] MEDS: DOXYCYCLINE HYCLATE 100 MG CAPSULE PO SCH (18:10)
[2019-07-24] MEDS: ATORVASTATIN CA 20 MG TABLET (FP) PO SCH (21:33)
[2019-07-24] MEDS: ARIPiprazole 5 MG TABLET (FP) PO SCH (21:33)
[2019-07-24] MEDS: hydrOXYzine HCL 25 MG TABLET (FP) PO SCH (21:33)
[2019-07-25] MEDS ORDERED: PT OWN MED DRAWER 7, Y5N ONE ×2 (05:35→21:07)
[2019-07-25] MEDS: TIZANIDINE HCL 2 MG TABLET PO SCH ×3 (06:25→22:22)
[2019-07-25] MEDS: INSULIN (LEVEMIR) 100 UNITS/ML UNITS SQ SCH ×2 (06:26→21:17)
[2019-07-25] MEDS: ceFAZolin 2 GRAM PREMIX BAG IVPB SCH ×3 (06:29→21:04)
[2019-07-25] MEDS: LIRAGLUTIDE 0.6 MG/0.1 ML PEN.INJCTR SQ SCH (06:30)
[2019-07-25] MEDS ORDERED: INSULIN (LEVEMIR) 100 UNITS/ML UNITS SQ ONE (06:48)
--- NOTE | 2019-07-25 08:58 | PN ---
Progress Note, Physician History of Present Illness: stable legs have started improving - Current Medication List Current Medications: Active Medications Aripiprazole (Abilify) 5 mg PO HS [facility] Last Admin: 07/24/19 21:33 Dose: 5 mg Atorvastatin Calcium (Lipitor -) 20 mg PO HS [facility] Last Admin: 07/24/19 21:33 Dose: 20 mg Budesonide/Formoterol Fumarate (Symbicort 160/4.5mcg -) 2 puff IH BID [facility] Last Admin: 07/24/19 21:32 Dose: 2 puff Cefazolin Sodium/Dextrose (Ancef 2 Gm Premixed Ivpb -) 2 gm IVPB TID [facility] Last Admin: 07/25/19 06:29 Dose: 2 gm Doxycycline Hyclate (Vibramycin -) 100 mg PO BID@1000,1800 [facility] Last Admin: 07/24/19 18:10 Dose: 100 mg Fentanyl (Sublimaze Injection -) 50 mcg IVPUSH [id number] PRN PRN Reason: PAIN-PACU ORDER X 4 DOSES ONLY Fluticasone Propionate (Flonase -) 1 spray NS BID [facility] Last Admin: 07/24/19 21:32 Dose: 1 spray Hydrochlorothiazide (Hctz -) 12.5 mg PO DAILY [facility] Last Admin: 07/24/19 09:30 Dose: 12.5 mg Hydroxyzine HCl (Atarax -) 25 mg PO [facility] Last Admin: 07/24/19 21:33 Dose: 25 mg Insulin Detemir (Levemir Vial) 10 units SQ BID@0700,2200 [facility] Last Admin: 07/25/19 06:26 Dose: Not Given Ipratropium [place] (Atrovent 0.02% Nebulizer -) 1 amp NEB Q6H PRN PRN Reason: ASTHMA Liraglutide (Victoza -) 0.6 mg SQ DAILY@0700 [facility] Last Admin: 07/25/19 06:30 Dose: Not Given Lisinopril (Prinivil) 5 mg PO DAILY [facility] Last Admin: 07/24/19 09:30 Dose: 5 mg Mupirocin (Bactroban 2% Cream -) 1 applic TP PRN [facility] Non-Formulary Medication (Benzonatate [Benzonatate]) 200 mg PO TID [facility] Non-Formulary Medication (Empagliflozin [Jardiance]) 10 mg PO DAILY [facility] Non-Formulary Medication (Ipratropium/Albuterol Sulfate [Combivent Respimat 20- 100 Mcg]) 4 gm IH QID [facility] Non-Formulary Medication (Lubiprostone [Amitiza]) 24 mcg PO BID [facility] Ondansetron HCl (Zofran Injection) 4 mg IVPUSH Q6H PRN PRN Reason: NAUSEA AND/OR VOMITING Oxycodone HCl (Roxicodone -) 10 mg PO Q4H PRN PRN Reason: PAIN 6-10 Last Admin: 07/24/19 19:50 Dose: 10 mg Paroxetine HCl (Paxil -) 10 mg PO DAILY [facility] Last Admin: 07/24/19 09:30 Dose: 10 mg Tizanidine HCl (Tizanidine Hcl) 2 mg PO TID [facility] Last Admin: 07/25/19 06:25 Dose: 2 mg Torsemide (Demadex -) 10 mg PO DAILY [facility] Last Admin: 07/24/19 09:30 Dose: 10 mg - Objective Vital Signs: Vital Signs Temperature 97.7 F 07/25/19 05:00 Pulse Rate 61 07/25/19 05:00 Respiratory Rate 20 07/25/19 05:00 Blood Pressure 110/73 07/25/19 05:00 O2 Sat by Pulse Oximetry (%) 94 L 07/24/19 21:00 Constitutional: Yes: No Distress, Calm Cardiovascular: Yes: S1, S2 Respiratory: Yes: Regular, CTA Bilaterally Gastrointestinal: Yes: Normal Bowel Sounds, Soft Musculoskeletal: Yes: WNL Extremities: Yes: Other (erythema improving) Neurological: Yes: Alert, Oriented Psychiatric: Yes: Alert, Oriented Labs: CBC, BMP 07/24/19 10:54 07/24/19 10:54 Assessment/Plan b/l cellulitis of the legs back pain htn dm plan continue current mgmt abx patient should be ready for surgery after the weekend rest as per the team
[2019-07-25] MEDS: PARoxetine HCL 10 MG TABLET PO SCH (09:46)
[2019-07-25] MEDS: TORSEMIDE 10 MG TABLET PO SCH (09:46)
[2019-07-25] MEDS: LISINOPRIL 5 MG TABLET (FP) PO SCH (09:46)
[2019-07-25] MEDS: DOXYCYCLINE HYCLATE 100 MG CAPSULE PO SCH ×2 (09:47→18:10)
[2019-07-25] MEDS: HYDROCHLOROTHIAZIDE 12.5 MG CAPSULE (FP) PO SCH (09:47)
[2019-07-25] MEDS: FLUTICASONE PROP 0.05% 16 GM NASAL SPRAY NS SCH ×2 (09:49→21:05)
[2019-07-25] MEDS: BUDESONIDE/FORMETEROL FUMARATE 160/4.5 mcg INHALER IH SCH ×2 (09:49→21:05)
[2019-07-25 10:48] LABS: BASO % 0.9 % (0-2.0); EOS % 2.5 % (0-4.5); HEMATOCRIT 36.1 % (32.4-45.2); HEMOGLOBIN 11.6 GM/dL (10.7-15.3); LYMPH % 35.9 % (8-40); MCH 26.5 pg (25.7-33.7); MCHC 32.3 g/dl (32.0-36.0); MEAN CELL VOLUME 82.1 fl (80-96); MEAN PLT VOLUME 7.8 fl (7.5-11.1); MONO % 10.4 % (3.8-10.2); NEUT % 50.3 % (42.8-82.8); PLATELET COUNT 136 K/MM3 (134-434); RBC 4.39 M/mm3 (3.60-5.2); RDW 23.8 % (11.6-15.6); WHITE BLOOD COUNT 3.3 K/mm3 (4.0-10.0)
[2019-07-25 11:13] LABS: ALBUMIN 3.8 g/dl (3.4-5.0); ALK PHOS 98 U/L (45-117); ANION GAP 5 MMOL/L (8-16); BILIRUBIN,TOTAL 0.3 mg/dL (0.2-1); BLOOD UREA NITROGEN 27.3 mg/dL (7-18); CALCIUM 9.1 mg/dL (8.5-10.1); CHLORIDE 100 mmol/L (98-107); CO2 31 mmol/L (21-32); CREATININE 1.2 mg/dL (0.55-1.3); GLUCOSE,RANDOM 111 mg/dL (74-106); POTASSIUM 4.1 mmol/L (3.5-5.1); SGOT/AST 26 U/L (15-37); SGPT/ALT 12 U/L (13-61); SODIUM 135 mmol/L (136-145); TOT PROT 6.8 g/dl (6.4-8.2)
[2019-07-25] MEDS: MUPIROCIN CA 2% TOPICAL CREAM 15 GM TUBE TP SCH ×2 (12:12→21:05)
--- NOTE | 2019-07-25 15:18 | PN ---
Progress Note, Physician Chief Complaint: back pain - Current Medication List Current Medications: Active Medications Aripiprazole (Abilify) 5 mg PO [facility] Last Admin: 07/24/19 21:33 Dose: 5 mg Atorvastatin Calcium (Lipitor -) 20 mg PO HS [facility] Last Admin: 07/24/19 21:33 Dose: 20 mg Budesonide/Formoterol Fumarate (Symbicort 160/4.5mcg -) 2 puff IH BID [facility] Last Admin: 07/25/19 09:49 Dose: 2 puff Cefazolin Sodium/Dextrose (Ancef 2 Gm Premixed Ivpb -) 2 gm IVPB TID [facility] Last Admin: 07/25/19 14:18 Dose: 2 gm Doxycycline Hyclate (Vibramycin -) 100 mg PO BID@1000,1800 [facility] Last Admin: 07/25/19 09:47 Dose: 100 mg Fentanyl (Sublimaze Injection -) 50 mcg IVPUSH [id number] PRN PRN Reason: PAIN-PACU ORDER X 4 DOSES ONLY Fluticasone Propionate (Flonase -) 1 spray NS BID [facility] Last Admin: 07/25/19 09:49 Dose: 1 spray Hydroxyzine HCl (Atarax -) 25 mg PO [facility] Last Admin: 07/24/19 21:33 Dose: 25 mg Insulin Detemir (Levemir Vial) 10 units SQ BID@0700,2200 [facility] Last Admin: 07/25/19 06:26 Dose: Not Given Ipratropium [place] (Atrovent 0.02% Nebulizer -) 1 amp NEB Q6H PRN PRN Reason: ASTHMA Liraglutide (Victoza -) 0.6 mg SQ DAILY@0700 [facility] Last Admin: 07/25/19 06:30 Dose: Not Given Lisinopril (Prinivil) 5 mg PO DAILY [facility] Last Admin: 07/25/19 09:46 Dose: 5 mg Mupirocin (Bactroban 2% Cream -) 1 applic TP BID [facility] Last Admin: 07/25/19 12:12 Dose: 1 applic Ondansetron HCl (Zofran Injection) 4 mg IVPUSH Q6H PRN PRN Reason: NAUSEA AND/OR VOMITING Oxycodone HCl (Roxicodone -) 10 mg PO Q4H PRN PRN Reason: PAIN 6-10 Paroxetine HCl (Paxil -) 10 mg PO DAILY [facility] Last Admin: 07/25/19 09:46 Dose: 10 mg Tizanidine HCl (Tizanidine Hcl) 2 mg PO TID [facility] Last Admin: 07/25/19 14:19 Dose: 2 mg Torsemide (Demadex -) 10 mg PO DAILY [facility] Last Admin: 07/25/19 09:46 Dose: 10 mg - Objective Vital Signs: Vital Signs Temperature 98.1 F 07/25/19 13:00 Pulse Rate 66 07/25/19 09:00 Respiratory Rate 18 07/25/19 13:00 Blood Pressure 94/53 L 07/25/19 13:00 O2 Sat by Pulse Oximetry (%) 97 07/25/19 09:00 Constitutional: Yes: Well Nourished, No Distress, Calm Eyes: Yes: WNL HENT: Yes: WNL Neck: Yes: WNL Cardiovascular: Yes: WNL Respiratory: Yes: WNL Gastrointestinal: Yes: WNL ...Rectal Exam: Yes: WNL Genitourinary: Yes: WNL Musculoskeletal: Yes: WNL Extremities: Yes: WNL Edema: Yes Peripheral Pulses WNL: Yes Neurological: Yes: WNL ...Motor Strength: WNL Psychiatric: Yes: WNL Labs: CBC, BMP 07/25/19 10:25 07/25/19 10:25 Assessment/Plan 63F pre-op for thoraco-lumbar instrumented fusion. case cancelled due to florid B/L lower extremity cellulitis. cont IV antibiotics. ID clearance requested. hopefully to be cleared by the end of the week once IV antibiotics are stopped. -cont pain management. incentive spirometry. -GI, DVT prophylaxis. mechanical only. -HLD: on lipitor. -HTN: on HCTZ, lisinopril. -type 2 DM: on levemir, victoza, RISS. -chronic COPD: cont bronchodilators. -major anxiety and depression: on abilify, paxil. -chronic diastolic CHF: cont torsemide, lisinopril -oral diet -OOB as tolerated -assessment and plan discussed with pt . labs and meds reviewed case discussed with Dr Vivas, ortho phone calls answered throughout the day. 25 min
[2019-07-25] MEDS: oxyCODONE HCL 5 MG TABLET PO PRN (21:00)
[2019-07-25] MEDS: ARIPiprazole 5 MG TABLET (FP) PO SCH (21:04)
[2019-07-25] MEDS: hydrOXYzine HCL 25 MG TABLET (FP) PO SCH (21:04)
[2019-07-25] MEDS: ATORVASTATIN CA 20 MG TABLET (FP) PO SCH (21:04)
[2019-07-26] MEDS: PATIENT'S OWN MEDICATION (NON-FORMULARY) (Lubiprostone [Amitiza] 24 MCG) PO SCH ×2 (02:11→02:12)
[2019-07-26] MEDS: TIZANIDINE HCL 2 MG TABLET PO SCH ×3 (06:14→21:17)
[2019-07-26] MEDS: ceFAZolin 2 GRAM PREMIX BAG IVPB SCH ×3 (06:14→21:17)
[2019-07-26] MEDS: INSULIN (LEVEMIR) 100 UNITS/ML UNITS SQ SCH (06:16)
[2019-07-26] MEDS: LIRAGLUTIDE 0.6 MG/0.1 ML PEN.INJCTR SQ SCH (06:17)
[2019-07-26] MEDS: oxyCODONE HCL 5 MG TABLET PO PRN ×2 (10:22→20:22)
[2019-07-26] MEDS: LISINOPRIL 5 MG TABLET (FP) PO SCH (10:23)
[2019-07-26] MEDS: PARoxetine HCL 10 MG TABLET PO SCH (10:23)
[2019-07-26] MEDS: TORSEMIDE 10 MG TABLET PO SCH (10:23)
[2019-07-26] MEDS: DOXYCYCLINE HYCLATE 100 MG CAPSULE PO SCH ×2 (10:23→17:02)
[2019-07-26] MEDS: MUPIROCIN CA 2% TOPICAL CREAM 15 GM TUBE TP SCH ×2 (10:25→21:19)
[2019-07-26] MEDS: FLUTICASONE PROP 0.05% 16 GM NASAL SPRAY NS SCH ×2 (10:26→21:19)
[2019-07-26] MEDS: BUDESONIDE/FORMETEROL FUMARATE 160/4.5 mcg INHALER IH SCH ×2 (10:27→21:19)
--- NOTE | 2019-07-26 12:09 | PN ---
Progress Note, Physician Chief Complaint: back pain - Current Medication List Current Medications: Active Medications Aripiprazole (Abilify) 5 mg PO HS [facility] Last Admin: 07/25/19 21:04 Dose: 5 mg Atorvastatin Calcium (Lipitor -) 20 mg PO HS [facility] Last Admin: 07/25/19 21:04 Dose: 20 mg Budesonide/Formoterol Fumarate (Symbicort 160/4.5mcg -) 2 puff IH BID [facility] Last Admin: 07/26/19 10:27 Dose: 2 puff Cefazolin Sodium/Dextrose (Ancef 2 Gm Premixed Ivpb -) 2 gm IVPB TID [facility] Last Admin: 07/26/19 06:14 Dose: 2 gm Doxycycline Hyclate (Vibramycin -) 100 mg PO BID@1000,1800 [facility] Last Admin: 07/26/19 10:23 Dose: 100 mg Fentanyl (Sublimaze Injection -) 50 mcg IVPUSH [id number] PRN PRN Reason: PAIN-PACU ORDER X 4 DOSES ONLY Fluticasone Propionate (Flonase -) 1 spray NS BID [facility] Last Admin: 07/26/19 10:26 Dose: 1 spray Hydroxyzine HCl (Atarax -) 25 mg PO [facility] Last Admin: 07/25/19 21:04 Dose: 25 mg Insulin Detemir (Levemir Vial) 10 units SQ AM [facility] Liraglutide (Victoza -) 0.6 mg SQ DAILY@0700 [facility] Last Admin: 07/26/19 06:17 Dose: Not Given Mupirocin (Bactroban 2% Cream -) 1 applic TP BID [facility] Last Admin: 07/26/19 10:25 Dose: 1 applic Ondansetron HCl (Zofran Injection) 4 mg IVPUSH Q6H PRN PRN Reason: NAUSEA AND/OR VOMITING Oxycodone HCl (Roxicodone -) 10 mg PO Q4H PRN PRN Reason: PAIN 6-10 Last Admin: 07/26/19 10:22 Dose: 10 mg Paroxetine HCl (Paxil -) 10 mg PO DAILY [facility] Last Admin: 07/26/19 10:23 Dose: 10 mg Tizanidine HCl (Tizanidine Hcl) 2 mg PO TID [facility] Last Admin: 07/26/19 06:14 Dose: 2 mg Torsemide (Demadex -) 10 mg PO DAILY [facility] Last Admin: 07/26/19 10:23 Dose: 10 mg - Objective Vital Signs: Vital Signs Temperature 98.4 F 07/26/19 07:00 Pulse Rate 60 07/26/19 07:00 Respiratory Rate 18 07/26/19 08:19 Blood Pressure 122/75 07/26/19 07:00 O2 Sat by Pulse Oximetry (%) 95 07/26/19 08:19 Constitutional: Yes: Well Nourished, No Distress Eyes: Yes: WNL HENT: Yes: WNL Neck: Yes: WNL Cardiovascular: Yes: WNL Respiratory: Yes: WNL Gastrointestinal: Yes: WNL Genitourinary: Yes: WNL Musculoskeletal: Yes: Back Pain Extremities: Yes: Erythema Edema: Yes Peripheral Pulses WNL: Yes Integumentary: Yes: WNL Neurological: Yes: WNL ...Motor Strength: WNL Labs: CBC, BMP 07/25/19 10:25 07/25/19 10:25 Assessment/Plan 63F pre-op for thoraco-lumbar instrumented fusion. case cancelled due to florid B/L lower extremity cellulitis. cont IV antibiotics. ID clearance appreciated. -cont pain management. incentive spirometry. -GI, DVT prophylaxis. mechanical only. -HLD: on lipitor. -type 2 DM: on levemir, victoza, RISS. has couplae episodes of AM hypoglycemia. PM levemir dose stopped. late night snack ebcouraged to avoid AM hypoglycemia. -chronic COPD: cont bronchodilators. -major anxiety and depression: on abilify, paxil. -chronic diastolic CHF: cont torsemide. no SONNY/ARB/aldactone due to hypotension. -oral diet -OOB as tolerated -assessment and plan discussed with pt . labs and meds reviewed case discussed with Dr Vivas, ortho phone calls answered throughout the day. 25 min
--- NOTE | 2019-07-26 16:08 | PN ---
Progress Note, Physician History of Present Illness: Pt seen and examined, events noted. She states her legs are improving, with less pain/warmth/redness. Chronic back pain, currently without acute distress. No other complaints. - Current Medication List Current Medications: Active Medications Aripiprazole (Abilify) 5 mg PO [facility] Last Admin: 07/25/19 21:04 Dose: 5 mg Atorvastatin Calcium (Lipitor -) 20 mg PO [facility] Last Admin: 07/25/19 21:04 Dose: 20 mg Budesonide/Formoterol Fumarate (Symbicort 160/4.5mcg -) 2 puff IH BID [facility] Last Admin: 07/26/19 10:27 Dose: 2 puff Cefazolin Sodium/Dextrose (Ancef 2 Gm Premixed Ivpb -) 2 gm IVPB TID [facility] Last Admin: 07/26/19 13:11 Dose: 2 gm Doxycycline Hyclate (Vibramycin -) 100 mg PO BID@1000,1800 [facility] Last Admin: 07/26/19 10:23 Dose: 100 mg Fentanyl (Sublimaze Injection -) 50 mcg IVPUSH [id number] PRN PRN Reason: PAIN-PACU ORDER X 4 DOSES ONLY Fluticasone Propionate (Flonase -) 1 spray NS BID [facility] Last Admin: 07/26/19 10:26 Dose: 1 spray Hydroxyzine HCl (Atarax -) 25 mg PO [facility] Last Admin: 07/25/19 21:04 Dose: 25 mg Insulin Detemir (Levemir Vial) 10 units SQ AM [facility] Liraglutide (Victoza -) 0.6 mg SQ DAILY@0700 [facility] Last Admin: 07/26/19 06:17 Dose: Not Given Mupirocin (Bactroban 2% Cream -) 1 applic TP BID [facility] Last Admin: 07/26/19 10:25 Dose: 1 applic Ondansetron HCl (Zofran Injection) 4 mg IVPUSH Q6H PRN PRN Reason: NAUSEA AND/OR VOMITING Oxycodone HCl (Roxicodone -) 10 mg PO Q4H PRN PRN Reason: PAIN 6-10 Last Admin: 07/26/19 10:22 Dose: 10 mg Paroxetine HCl (Paxil -) 10 mg PO DAILY [facility] Last Admin: 07/26/19 10:23 Dose: 10 mg Tizanidine HCl (Tizanidine Hcl) 2 mg PO TID [facility] Last Admin: 07/26/19 13:11 Dose: 2 mg Torsemide (Demadex -) 10 mg PO DAILY [facility] Last Admin: 07/26/19 10:23 Dose: 10 mg - Objective Vital Signs: Vital Signs Temperature 98.6 F 07/26/19 15:00 Pulse Rate 61 07/26/19 15:00 Respiratory Rate 20 07/26/19 15:00 Blood Pressure 94/53 L 07/26/19 15:00 O2 Sat by Pulse Oximetry (%) 95 07/26/19 08:19 Constitutional: Yes: No Distress, Calm Cardiovascular: Yes: Regular Rate and Rhythm Respiratory: Yes: Regular Gastrointestinal: Yes: Normal Bowel Sounds, Soft Genitourinary: Yes: WNL Musculoskeletal: Yes: Back Pain Extremities: Yes: Erythema, Other (LLE >RLE erythema, LLE erythema slowly improving / mild heat, less tender, RLE erythema nearly resolved) Integumentary: Yes: WNL Neurological: Yes: Alert, Oriented Labs: CBC, BMP 07/25/19 10:25 07/25/19 10:25 Assessment/Plan LE cellulitis Chronic back pain COPD DM HTN HLD CHF -- continue current antibiotics, on Cefazolin, Doxycycline was added -- pain control -- pt currently afebrile/without distress -- awaiting thoraco-lumbar fusion
[2019-07-26] MEDS ORDERED: PT OWN MED DRAWER 7, Y5N ONE (20:15)
[2019-07-26] MEDS: ATORVASTATIN CA 20 MG TABLET (FP) PO SCH (21:17)
[2019-07-26] MEDS: ARIPiprazole 5 MG TABLET (FP) PO SCH (21:17)
[2019-07-26] MEDS: hydrOXYzine HCL 25 MG TABLET (FP) PO SCH (21:18)
[2019-07-27] MEDS: ceFAZolin 2 GRAM PREMIX BAG IVPB SCH ×3 (06:00→21:19)
[2019-07-27] MEDS: TIZANIDINE HCL 2 MG TABLET PO SCH ×3 (06:01→21:19)
[2019-07-27] MEDS: LIRAGLUTIDE 0.6 MG/0.1 ML PEN.INJCTR SQ SCH (06:02)
[2019-07-27] MEDS ORDERED: PT OWN MED DRAWER 7, Y5N ONE (09:08)
[2019-07-27] MEDS: DOXYCYCLINE HYCLATE 100 MG CAPSULE PO SCH ×2 (09:25→17:48)
[2019-07-27] MEDS: FLUTICASONE PROP 0.05% 16 GM NASAL SPRAY NS SCH ×2 (09:25→21:21)
[2019-07-27] MEDS: TORSEMIDE 10 MG TABLET PO SCH (09:25)
[2019-07-27] MEDS: MUPIROCIN CA 2% TOPICAL CREAM 15 GM TUBE TP SCH ×2 (09:25→21:22)
[2019-07-27] MEDS: oxyCODONE HCL 5 MG TABLET PO PRN (09:27)
[2019-07-27] MEDS: BUDESONIDE/FORMETEROL FUMARATE 160/4.5 mcg INHALER IH SCH ×2 (09:28→21:21)
[2019-07-27] MEDS: PARoxetine HCL 10 MG TABLET PO SCH (09:36)
[2019-07-27] MEDS: INSULIN (LEVEMIR) 100 UNITS/ML UNITS SQ SCH (11:53)
--- NOTE | 2019-07-27 12:49 | PN ---
Progress Note, Physician History of Present Illness: Pt remains alert, without acute distress. Pain in legs resolving. Chronic back pain and appears controlled. Pt sitting up in chair and eating. No other complaints. Tolerating antibiotics. - Current Medication List Current Medications: Active Medications Aripiprazole (Abilify) 5 mg PO [facility] Last Admin: 07/26/19 21:17 Dose: 5 mg Atorvastatin Calcium (Lipitor -) 20 mg PO [facility] Last Admin: 07/26/19 21:17 Dose: 20 mg Budesonide/Formoterol Fumarate (Symbicort 160/4.5mcg -) 2 puff IH BID [facility] Last Admin: 07/27/19 09:28 Dose: 2 puff Cefazolin Sodium/Dextrose (Ancef 2 Gm Premixed Ivpb -) 2 gm IVPB TID [facility] Last Admin: 07/27/19 06:00 Dose: 2 gm Doxycycline Hyclate (Vibramycin -) 100 mg PO BID@1000,1800 [facility] Last Admin: 07/27/19 09:25 Dose: 100 mg Fentanyl (Sublimaze Injection -) 50 mcg IVPUSH [id number] PRN PRN Reason: PAIN-PACU ORDER X 4 DOSES ONLY Fluticasone Propionate (Flonase -) 1 spray NS BID [facility] Last Admin: 07/27/19 09:25 Dose: 1 spray Hydroxyzine HCl (Atarax -) 25 mg PO [facility] Last Admin: 07/26/19 21:18 Dose: 25 mg Insulin Detemir (Levemir Vial) 10 units SQ AM [facility] Last Admin: 07/27/19 11:53 Dose: 10 units Liraglutide (Victoza -) 0.6 mg SQ DAILY@0700 [facility] Last Admin: 07/27/19 06:02 Dose: 0.6 mg Mupirocin (Bactroban 2% Cream -) 1 applic TP BID [facility] Last Admin: 07/27/19 09:25 Dose: 1 applic Ondansetron HCl (Zofran Injection) 4 mg IVPUSH Q6H PRN PRN Reason: NAUSEA AND/OR VOMITING Oxycodone HCl (Roxicodone -) 10 mg PO Q4H PRN PRN Reason: PAIN 6-10 Last Admin: 07/27/19 09:27 Dose: 10 mg Paroxetine HCl (Paxil -) 10 mg PO DAILY [facility] Last Admin: 07/27/19 09:36 Dose: 10 mg Tizanidine HCl (Tizanidine Hcl) 2 mg PO TID [facility] Last Admin: 07/27/19 06:01 Dose: 2 mg Torsemide (Demadex -) 10 mg PO DAILY [facility] Last Admin: 07/27/19 09:25 Dose: 10 mg - Objective Vital Signs: Vital Signs Temperature 99.1 F 07/27/19 10:00 Pulse Rate 78 07/27/19 10:00 Respiratory Rate 18 07/27/19 10:00 Blood Pressure 112/70 07/27/19 10:00 O2 Sat by Pulse Oximetry (%) 96 07/26/19 21:00 Constitutional: Yes: No Distress, Calm Cardiovascular: Yes: Regular Rate and Rhythm Respiratory: Yes: Regular Gastrointestinal: Yes: Normal Bowel Sounds, Soft, Abdomen, Obese Genitourinary: Yes: WNL Musculoskeletal: Yes: Back Pain Extremities: Yes: Erythema (RLE minimal erythema/ no warmth or tenderness LLE erythema but less warmth, tenderness +mild edema) Neurological: Yes: Alert, Oriented Labs: CBC, BMP 07/25/19 10:25 07/25/19 10:25 Assessment/Plan LE cellulitis - slowly improving Chronic back pain - awaiting thoraco-lumbar fusion COPD DM HTN HLD CHF -- temp 99.1F today, but no new complaints, vitals stable -- continue current antibiotics -- pain control -- repeat cbc/bmp, continue monitor temps
--- NOTE | 2019-07-27 13:01 | PN ---
Progress Note, Physician Chief Complaint: back pain - Current Medication List Current Medications: Active Medications Aripiprazole (Abilify) 5 mg PO [facility] Last Admin: 07/26/19 21:17 Dose: 5 mg Atorvastatin Calcium (Lipitor -) 20 mg PO HS [facility] Last Admin: 07/26/19 21:17 Dose: 20 mg Budesonide/Formoterol Fumarate (Symbicort 160/4.5mcg -) 2 puff IH BID [facility] Last Admin: 07/27/19 09:28 Dose: 2 puff Cefazolin Sodium/Dextrose (Ancef 2 Gm Premixed Ivpb -) 2 gm IVPB TID [facility] Last Admin: 07/27/19 06:00 Dose: 2 gm Doxycycline Hyclate (Vibramycin -) 100 mg PO BID@1000,1800 [facility] Last Admin: 07/27/19 09:25 Dose: 100 mg Fentanyl (Sublimaze Injection -) 50 mcg IVPUSH [id number] PRN PRN Reason: PAIN-PACU ORDER X 4 DOSES ONLY Fluticasone Propionate (Flonase -) 1 spray NS BID [facility] Last Admin: 07/27/19 09:25 Dose: 1 spray Hydroxyzine HCl (Atarax -) 25 mg PO [facility] Last Admin: 07/26/19 21:18 Dose: 25 mg Insulin Detemir (Levemir Vial) 10 units SQ AM [facility] Last Admin: 07/27/19 11:53 Dose: 10 units Liraglutide (Victoza -) 0.6 mg SQ DAILY@0700 [facility] Last Admin: 07/27/19 06:02 Dose: 0.6 mg Mupirocin (Bactroban 2% Cream -) 1 applic TP BID [facility] Last Admin: 07/27/19 09:25 Dose: 1 applic Ondansetron HCl (Zofran Injection) 4 mg IVPUSH Q6H PRN PRN Reason: NAUSEA AND/OR VOMITING Oxycodone HCl (Roxicodone -) 10 mg PO Q4H PRN PRN Reason: PAIN 6-10 Last Admin: 07/27/19 09:27 Dose: 10 mg Paroxetine HCl (Paxil -) 10 mg PO DAILY [facility] Last Admin: 07/27/19 09:36 Dose: 10 mg Tizanidine HCl (Tizanidine Hcl) 2 mg PO TID [facility] Last Admin: 07/27/19 06:01 Dose: 2 mg Torsemide (Demadex -) 10 mg PO DAILY [facility] Last Admin: 07/27/19 09:25 Dose: 10 mg - Objective Vital Signs: Vital Signs Temperature 99.1 F 07/27/19 10:00 Pulse Rate 78 07/27/19 10:00 Respiratory Rate 18 07/27/19 10:00 Blood Pressure 112/70 07/27/19 10:00 O2 Sat by Pulse Oximetry (%) 96 07/26/19 21:00 Constitutional: Yes: Well Nourished, No Distress Eyes: Yes: WNL HENT: Yes: WNL Neck: Yes: WNL Cardiovascular: Yes: WNL Respiratory: Yes: WNL Gastrointestinal: Yes: WNL Genitourinary: Yes: WNL Musculoskeletal: Yes: WNL Extremities: Yes: Erythema Edema: Yes Peripheral Pulses WNL: Yes Integumentary: Yes: WNL Neurological: Yes: WNL ...Motor Strength: WNL Psychiatric: Yes: WNL Labs: CBC, BMP 07/25/19 10:25 07/25/19 10:25 Assessment/Plan 63F pre-op for thoraco-lumbar instrumented fusion. case cancelled due to florid B/L lower extremity cellulitis. cont IV antibiotics. ID clearance appreciated. -cont pain management. incentive spirometry. -GI, DVT prophylaxis. mechanical only. -HLD: on lipitor. -type 2 DM: on levemir, victoza, RISS. has couplae episodes of AM hypoglycemia. PM levemir dose stopped. AM glucose levels improved. late night snack ebcouraged to avoid AM hypoglycemia. -chronic COPD: cont bronchodilators. -major anxiety and depression: on abilify, paxil. -chronic diastolic CHF: cont torsemide. no SONNY/ARB/aldactone due to hypotension. will re-introduce as hypotension resolves. -oral diet -OOB as tolerated -assessment and plan discussed with pt . labs and meds reviewed case discussed with Dr Vivas, ortho phone calls answered throughout the day. 25 min
[2019-07-27] MEDS: hydrOXYzine HCL 25 MG TABLET (FP) PO SCH (21:19)
[2019-07-27] MEDS: ARIPiprazole 5 MG TABLET (FP) PO SCH (21:19)
[2019-07-27] MEDS: ATORVASTATIN CA 20 MG TABLET (FP) PO SCH (23:12)
[2019-07-28] MEDS: TIZANIDINE HCL 2 MG TABLET PO SCH ×3 (05:50→22:42)
[2019-07-28] MEDS: ceFAZolin 2 GRAM PREMIX BAG IVPB SCH ×2 (05:50→15:26)
[2019-07-28] MEDS: INSULIN (LEVEMIR) 100 UNITS/ML UNITS SQ SCH (07:05)
[2019-07-28] MEDS ORDERED: PT OWN MED DRAWER 7, Y5N ONE ×2 (07:06→10:12)
[2019-07-28] MEDS: LIRAGLUTIDE 0.6 MG/0.1 ML PEN.INJCTR SQ SCH (07:07)
[2019-07-28 07:56] LABS: BASO % 0.9 % (0-2.0); CALCIUM 9.1 mg/dL (8.5-10.1); CREATININE 1.1 mg/dL (0.55-1.3); EOS % 1.9 % (0-4.5); HEMATOCRIT 35.3 % (32.4-45.2); HEMOGLOBIN 11.2 GM/dL (10.7-15.3); LYMPH % 41.2 % (8-40); MCH 26.1 pg (25.7-33.7); MCHC 31.8 g/dl (32.0-36.0); MEAN CELL VOLUME 82.2 fl (80-96); MEAN PLT VOLUME 8.2 fl (7.5-11.1); MONO % 12.1 % (3.8-10.2); NEUT % 43.9 % (42.8-82.8); PLATELET COUNT 139 K/MM3 (134-434); POTASSIUM 3.9 mmol/L (3.5-5.1); RBC 4.29 M/mm3 (3.60-5.2); RDW 23.6 % (11.6-15.6); WHITE BLOOD COUNT 3.8 K/mm3 (4.0-10.0)
[2019-07-28] MEDS: MUPIROCIN CA 2% TOPICAL CREAM 15 GM TUBE TP SCH (11:12)
[2019-07-28] MEDS: PARoxetine HCL 10 MG TABLET PO SCH (11:12)
[2019-07-28] MEDS: TORSEMIDE 10 MG TABLET PO SCH (11:12)
[2019-07-28] MEDS: DOXYCYCLINE HYCLATE 100 MG CAPSULE PO SCH ×2 (11:12→17:54)
[2019-07-28] MEDS: FLUTICASONE PROP 0.05% 16 GM NASAL SPRAY NS SCH ×2 (11:14→22:22)
[2019-07-28] MEDS: BUDESONIDE/FORMETEROL FUMARATE 160/4.5 mcg INHALER IH SCH ×2 (11:14→22:24)
[2019-07-28] MEDS: oxyCODONE HCL 5 MG TABLET PO PRN ×2 (13:02→22:23)
--- NOTE | 2019-07-28 16:46 | PN ---
Progress Note, Physician Chief Complaint: back pain - Current Medication List Current Medications: Active Medications Aripiprazole (Abilify) 5 mg PO HS [facility] Last Admin: 07/27/19 21:19 Dose: 5 mg Atorvastatin Calcium (Lipitor -) 20 mg PO HS [facility] Last Admin: 07/27/19 23:12 Dose: 20 mg Budesonide/Formoterol Fumarate (Symbicort 160/4.5mcg -) 2 puff IH BID [facility] Last Admin: 07/28/19 11:14 Dose: 2 puff Doxycycline Hyclate (Vibramycin -) 100 mg PO BID@1000,1800 [facility] Last Admin: 07/28/19 11:12 Dose: 100 mg Fentanyl (Sublimaze Injection -) 50 mcg IVPUSH [id number] PRN PRN Reason: PAIN-PACU ORDER X 4 DOSES ONLY Fluticasone Propionate (Flonase -) 1 spray NS BID [facility] Last Admin: 07/28/19 11:14 Dose: 1 spray Hydroxyzine HCl (Atarax -) 25 mg PO [facility] Last Admin: 07/27/19 21:19 Dose: 25 mg Insulin Detemir (Levemir Vial) 10 units SQ AM [facility] Last Admin: 07/28/19 07:05 Dose: Not Given Liraglutide (Victoza -) 0.6 mg SQ DAILY@0700 [facility] Last Admin: 07/28/19 07:07 Dose: 0.6 mg Mupirocin (Bactroban 2% Cream -) 1 applic TP BID [facility] Last Admin: 07/28/19 11:12 Dose: 1 applic Ondansetron HCl (Zofran Injection) 4 mg IVPUSH Q6H PRN PRN Reason: NAUSEA AND/OR VOMITING Oxycodone HCl (Roxicodone -) 10 mg PO Q4H PRN PRN Reason: PAIN LEVEL 6-10 Last Admin: 07/28/19 13:02 Dose: 10 mg Paroxetine HCl (Paxil -) 10 mg PO DAILY [facility] Last Admin: 07/28/19 11:12 Dose: 10 mg Tizanidine HCl (Tizanidine Hcl) 2 mg PO TID [facility] Last Admin: 07/28/19 15:26 Dose: 2 mg Torsemide (Demadex -) 10 mg PO DAILY [facility] Last Admin: 07/28/19 11:12 Dose: 10 mg - Objective Vital Signs: Vital Signs Temperature 98.1 F 07/28/19 14:00 Pulse Rate 76 07/28/19 14:00 Respiratory Rate 18 07/28/19 14:00 Blood Pressure 113/64 07/28/19 14:00 O2 Sat by Pulse Oximetry (%) 96 07/26/19 21:00 Constitutional: Yes: Well Nourished, No Distress, Calm Eyes: Yes: WNL HENT: Yes: WNL Neck: Yes: WNL Cardiovascular: Yes: WNL Respiratory: Yes: WNL Gastrointestinal: Yes: WNL ...Rectal Exam: Yes: Deferred Genitourinary: Yes: WNL Musculoskeletal: Yes: Back Pain Extremities: Yes: WNL Edema: Yes Peripheral Pulses WNL: No Integumentary: Yes: WNL Neurological: Yes: WNL ...Motor Strength: WNL Psychiatric: Yes: WNL Labs: CBC, BMP 07/28/19 06:42 07/28/19 06:42 Assessment/Plan 63F pre-op for thoraco-lumbar instrumented fusion. case cancelled due to florid B/L lower extremity cellulitis. cont IV antibiotics. ID clearance appreciated. -cont pain management. incentive spirometry. -GI, DVT prophylaxis. mechanical only. -HLD: on lipitor. -type 2 DM: on levemir, victoza, RISS. has couple episodes of AM hypoglycemia. PM levemir dose stopped. AM glucose levels improved. -chronic COPD: cont bronchodilators. -major anxiety and depression: on abilify, paxil. -chronic diastolic CHF: cont torsemide. no SONNY/ARB/aldactone due to hypotension. -oral diet -OOB as tolerated -assessment and plan discussed with pt . labs and meds reviewed hopefully will go to [place] this week. phone calls answered throughout the day. 25 min
--- NOTE | 2019-07-28 17:36 | PN ---
Progress Note, Physician History of Present Illness: Pt without new complaints. Less pain in legs, remains afebrile. - Current Medication List Current Medications: Active Medications Aripiprazole (Abilify) 5 mg PO [facility] Last Admin: 07/27/19 21:19 Dose: 5 mg Atorvastatin Calcium (Lipitor -) 20 mg PO HS [facility] Last Admin: 07/27/19 23:12 Dose: 20 mg Budesonide/Formoterol Fumarate (Symbicort 160/4.5mcg -) 2 puff IH BID [facility] Last Admin: 07/28/19 11:14 Dose: 2 puff Doxycycline Hyclate (Vibramycin -) 100 mg PO BID@1000,1800 [facility] Last Admin: 07/28/19 11:12 Dose: 100 mg Fentanyl (Sublimaze Injection -) 50 mcg IVPUSH [id number] PRN PRN Reason: PAIN-PACU ORDER X 4 DOSES ONLY Fluticasone Propionate (Flonase -) 1 spray NS BID [facility] Last Admin: 07/28/19 11:14 Dose: 1 spray Hydroxyzine HCl (Atarax -) 25 mg PO [facility] Last Admin: 07/27/19 21:19 Dose: 25 mg Insulin Detemir (Levemir Vial) 10 units SQ AM [facility] Last Admin: 07/28/19 07:05 Dose: Not Given Liraglutide (Victoza -) 0.6 mg SQ DAILY@0700 [facility] Last Admin: 07/28/19 07:07 Dose: 0.6 mg Mupirocin (Bactroban 2% Cream -) 1 applic TP BID [facility] Last Admin: 07/28/19 11:12 Dose: 1 applic Ondansetron HCl (Zofran Injection) 4 mg IVPUSH Q6H PRN PRN Reason: NAUSEA AND/OR VOMITING Oxycodone HCl (Roxicodone -) 10 mg PO Q4H PRN PRN Reason: PAIN LEVEL 6-10 Last Admin: 07/28/19 13:02 Dose: 10 mg Paroxetine HCl (Paxil -) 10 mg PO DAILY [facility] Last Admin: 07/28/19 11:12 Dose: 10 mg Tizanidine HCl (Tizanidine Hcl) 2 mg PO TID [facility] Last Admin: 07/28/19 15:26 Dose: 2 mg Torsemide (Demadex -) 10 mg PO DAILY [facility] Last Admin: 07/28/19 11:12 Dose: 10 mg - Objective Vital Signs: Vital Signs Temperature 97.2 F L 07/28/19 17:25 Pulse Rate 53 L 07/28/19 17:25 Respiratory Rate 18 07/28/19 17:25 Blood Pressure 101/63 07/28/19 17:25 O2 Sat by Pulse Oximetry (%) 96 07/26/19 21:00 Constitutional: Yes: No Distress, Calm Cardiovascular: Yes: Regular Rate and Rhythm Respiratory: Yes: Regular Gastrointestinal: Yes: Normal Bowel Sounds, Soft Genitourinary: Yes: WNL Extremities: Yes: Erythema (RLE minimal erythema LLE decreasing erythema/edema/ warmth, no tenderness) Integumentary: Yes: WNL Neurological: Yes: Alert, Oriented Labs: CBC, BMP 07/28/19 06:42 07/28/19 06:42 Assessment/Plan LE cellulitis Chronic back pain - awaiting thoraco-lumbar fusion COPD DM HTN HLD CHF -- pt clinically improving -- will switch to po antibiotics tomorrow -- back pain controlled
[2019-07-28] MEDS: ARIPiprazole 5 MG TABLET (FP) PO SCH (22:21)
[2019-07-28] MEDS: ATORVASTATIN CA 20 MG TABLET (FP) PO SCH (22:21)
[2019-07-28] MEDS: hydrOXYzine HCL 25 MG TABLET (FP) PO SCH (22:21)
[2019-07-28] MEDS: MUPIROCIN 2% TOPICAL OINTMENT 22 GM TUBE TP SCH (22:27)
[2019-07-29] MEDS ORDERED: PT OWN MED DRAWER 7, Y5N ONE ×5 (05:36→20:44)
[2019-07-29] MEDS: TIZANIDINE HCL 2 MG TABLET PO SCH ×3 (05:58→21:10)
[2019-07-29] MEDS: INSULIN (LEVEMIR) 100 UNITS/ML UNITS SQ SCH (05:59)
[2019-07-29] MEDS: LIRAGLUTIDE 0.6 MG/0.1 ML PEN.INJCTR SQ SCH (06:00)
[2019-07-29] MEDS ORDERED: INSULIN (LEVEMIR) 100 UNITS/ML UNITS SQ ONE (06:33)
[2019-07-29] MEDS ORDERED: INSULIN (NOVOLOG) ASPART 100 UNITS/ML 10ML VIAL ONE (06:33)
[2019-07-29] MEDS: oxyCODONE HCL 5 MG TABLET PO PRN ×2 (10:18→20:48)
[2019-07-29] MEDS: PARoxetine HCL 10 MG TABLET PO SCH (10:18)
[2019-07-29] MEDS: DOXYCYCLINE HYCLATE 100 MG CAPSULE PO SCH ×2 (10:18→17:09)
[2019-07-29] MEDS: TORSEMIDE 10 MG TABLET PO SCH (10:19)
[2019-07-29] MEDS: BUDESONIDE/FORMETEROL FUMARATE 160/4.5 mcg INHALER IH SCH ×2 (10:20→21:07)
[2019-07-29] MEDS: MUPIROCIN 2% TOPICAL OINTMENT 22 GM TUBE TP SCH ×2 (10:20→21:09)
[2019-07-29] MEDS: FLUTICASONE PROP 0.05% 16 GM NASAL SPRAY NS SCH ×2 (10:20→21:07)
--- NOTE | 2019-07-29 11:04 | PN ---
Progress Note, Physician History of Present Illness: patient stable no new issues cellulitis resolved - Current Medication List Current Medications: Active Medications Aripiprazole (Abilify) 5 mg PO HS [facility] Last Admin: 07/28/19 22:21 Dose: 5 mg Atorvastatin Calcium (Lipitor -) 20 mg PO HS [facility] Last Admin: 07/28/19 22:21 Dose: 20 mg Budesonide/Formoterol Fumarate (Symbicort 160/4.5mcg -) 2 puff IH BID [facility] Last Admin: 07/29/19 10:20 Dose: 2 puff Doxycycline Hyclate (Vibramycin -) 100 mg PO BID@1000,1800 [facility] Last Admin: 07/29/19 10:18 Dose: 100 mg Fentanyl (Sublimaze Injection -) 50 mcg IVPUSH [id number] PRN PRN Reason: PAIN-PACU ORDER X 4 DOSES ONLY Fluticasone Propionate (Flonase -) 1 spray NS BID [facility] Last Admin: 07/29/19 10:20 Dose: 1 spray Hydroxyzine HCl (Atarax -) 25 mg PO [facility] Last Admin: 07/28/19 22:21 Dose: 25 mg Insulin Detemir (Levemir Vial) 10 units SQ AM [facility] Last Admin: 07/29/19 05:59 Dose: 10 units Liraglutide (Victoza -) 0.6 mg SQ DAILY@0700 [facility] Last Admin: 07/29/19 06:00 Dose: 0.6 mg Mupirocin (Bactroban 2% Ointment -) 1 applic TP BID [facility] Last Admin: 07/29/19 10:20 Dose: 1 applic Ondansetron HCl (Zofran Injection) 4 mg IVPUSH Q6H PRN PRN Reason: NAUSEA AND/OR VOMITING Oxycodone HCl (Roxicodone -) 10 mg PO Q4H PRN PRN Reason: PAIN LEVEL 6-10 Last Admin: 07/29/19 10:18 Dose: 10 mg Paroxetine HCl (Paxil -) 10 mg PO DAILY [facility] Last Admin: 07/29/19 10:18 Dose: 10 mg Tizanidine HCl (Tizanidine Hcl) 2 mg PO TID [facility] Last Admin: 07/29/19 05:58 Dose: 2 mg Torsemide (Demadex -) 10 mg PO DAILY [facility] Last Admin: 07/29/19 10:19 Dose: 10 mg - Objective Vital Signs: Vital Signs Temperature 98.4 F 07/29/19 10:00 Pulse Rate 65 07/29/19 10:00 Respiratory Rate 18 07/29/19 10:00 Blood Pressure 119/65 07/29/19 10:00 O2 Sat by Pulse Oximetry (%) 96 07/28/19 21:00 Constitutional: Yes: No Distress, Calm Cardiovascular: Yes: S1, S2 Respiratory: Yes: Regular, CTA Bilaterally Gastrointestinal: Yes: Normal Bowel Sounds, Soft Musculoskeletal: Yes: WNL Extremities: Yes: Other (redness improved) Neurological: Yes: Alert, Oriented Labs: CBC, BMP 07/28/19 06:42 07/28/19 06:42 Assessment/Plan LE cellulitis Chronic back pain - awaiting thoraco-lumbar fusion COPD DM HTN HLD CHF plan continue current mgmt abx patient can be taken to surgery rest as per the team
--- NOTE | 2019-07-29 14:48 | DS ---
Physical Examination Vital Signs: Vital Signs Temperature 98.4 F 07/29/19 10:00 Pulse Rate 65 07/29/19 10:00 Respiratory Rate 18 07/29/19 10:00 Blood Pressure 119/65 07/29/19 10:00 O2 Sat by Pulse Oximetry (%) 96 07/29/19 09:00 Labs: CBC, BMP 07/28/19 06:42 07/28/19 06:42 Discharge Summary Reason For Visit: SPINAL STENOSIS, LUMBAR Hospital Course: 63F pre-op for thoraco-lumbar instrumented fusion. case cancelled due to florid B/L lower extremity cellulitis. cont IV antibiotics. ID clearance appreciated. -cont pain management. incentive spirometry. -GI, DVT prophylaxis. mechanical only. -HLD: on lipitor. -type 2 DM: on levemir, victoza, RISS. has couple episodes of AM hypoglycemia. PM levemir dose stopped. AM glucose levels improved. -chronic COPD: cont bronchodilators. -major anxiety and depression: on abilify, paxil. -chronic diastolic CHF: cont torsemide. no SONNY/ARB/aldactone due to hypotension. Condition: Good - Instructions Disposition: HOME - Home Medications Comprehensive Discharge Medication List: Ambulatory Orders Aripiprazole [Abilify] 1 tab PO HS 07/18/19 Aspirin [ASA -] 81 mg PO DAILY 07/18/19 Atorvastatin Ca [Lipitor] 20 mg PO DAILY 07/18/19 Benzonatate 200 mg PO TID 07/18/19 Budesonide/Formeterol Fumarate [SYMBICORT 160/4.5mcg -] 2 inh PO BID 07/18/19 Cholecalciferol (Vitamin D3) [Vitamin D3 -] 1,000 unit PO DAILY 07/18/19 Cyanocobalamin [Vitamin B12 -] 1,000 mcg PO DAILY 07/18/19 Empagliflozin [Jardiance] 10 mg PO DAILY 07/18/19 Ferrous Sulfate [Feosol] 325 mg PO DAILY 07/18/19 Fluticasone Propionate [Allergy Relief] 15.8 ml NS BID 07/18/19 Hydrochlorothiazide [Hctz -] 12.5 mg PO DAILY 07/18/19 Hydroxyzine HCl 25 mg PO HS 07/18/19 Insulin Glargine,Hum.rec.anlog [Lantus Solostar PEN (NF)] 10 units SQ BID Ipratropium 0.02% Nebulizer [Atrovent 0.02% Nebulizer -] 1 amp NEB QID PRN 07/18 Ipratropium/Albuterol Sulfate [Combivent Respimat Inhal [place]] 4 gm IH QID 07/18 Liraglutide [Victoza -] 0.6 mg SQ DAILY@0700 07/18/19 Loratadine [Claritin] 10 mg PO DAILY 07/18/19 Lubiprostone [Amitiza] 24 mcg PO BID 07/18/19 Mupirocin Cream [Bactroban 2% Cream -] 1 applic TP PRN 07/18/19 Paroxetine HCl 10 mg PO DAILY 07/18/19 Tizanidine HCl 2 mg PO TID 07/18/19 Torsemide [Demadex] 10 mg PO DAILY 07/18/19 Lisinopril 5 mg PO DAILY 07/21/19
[2019-07-29] MEDS: ATORVASTATIN CA 20 MG TABLET (FP) PO SCH (21:10)
[2019-07-29] MEDS: hydrOXYzine HCL 25 MG TABLET (FP) PO SCH (21:10)
[2019-07-29] MEDS: ARIPiprazole 5 MG TABLET (FP) PO SCH (21:10)
[2019-07-30] MEDS: TIZANIDINE HCL 2 MG TABLET PO SCH ×3 (05:58→21:31)
[2019-07-30] MEDS: LIRAGLUTIDE 0.6 MG/0.1 ML PEN.INJCTR SQ SCH (06:24)
[2019-07-30] MEDS: INSULIN (LEVEMIR) 100 UNITS/ML UNITS SQ SCH (06:24)
--- NOTE | 2019-07-30 08:32 | PN ---
Progress Note, Physician History of Present Illness: patient stable no issues - Current Medication List Current Medications: Active Medications Aripiprazole (Abilify) 5 mg PO HS [facility] Last Admin: 07/29/19 21:10 Dose: 5 mg Atorvastatin Calcium (Lipitor -) 20 mg PO HS [facility] Last Admin: 07/29/19 21:10 Dose: 20 mg Budesonide/Formoterol Fumarate (Symbicort 160/4.5mcg -) 2 puff IH BID [facility] Last Admin: 07/29/19 21:07 Dose: 2 puff Doxycycline Hyclate (Vibramycin -) 100 mg PO BID@1000,1800 [facility] Last Admin: 07/29/19 17:09 Dose: 100 mg Fentanyl (Sublimaze Injection -) 50 mcg IVPUSH [id number] PRN PRN Reason: PAIN-PACU ORDER X 4 DOSES ONLY Fluticasone Propionate (Flonase -) 1 spray NS BID [facility] Last Admin: 07/29/19 21:07 Dose: 1 spray Hydroxyzine HCl (Atarax -) 25 mg PO [facility] Last Admin: 07/29/19 21:10 Dose: 25 mg Insulin Detemir (Levemir Vial) 10 units SQ AM [facility] Last Admin: 07/30/19 06:24 Dose: 10 units Liraglutide (Victoza -) 0.6 mg SQ DAILY@0700 [facility] Last Admin: 07/30/19 06:24 Dose: 0.6 mg Mupirocin (Bactroban 2% Ointment -) 1 applic TP BID [facility] Last Admin: 07/29/19 21:09 Dose: 1 applic Ondansetron HCl (Zofran Injection) 4 mg IVPUSH Q6H PRN PRN Reason: NAUSEA AND/OR VOMITING Oxycodone HCl (Roxicodone -) 10 mg PO Q4H PRN PRN Reason: PAIN LEVEL 6-10 Last Admin: 07/29/19 20:48 Dose: 10 mg Paroxetine HCl (Paxil -) 10 mg PO DAILY [facility] Last Admin: 07/29/19 10:18 Dose: 10 mg Tizanidine HCl (Tizanidine Hcl) 2 mg PO TID [facility] Last Admin: 07/30/19 05:58 Dose: 2 mg Torsemide (Demadex -) 10 mg PO DAILY [facility] Last Admin: 07/29/19 10:19 Dose: 10 mg - Objective Vital Signs: Vital Signs Temperature 97.9 F 07/30/19 06:27 Pulse Rate 55 L 07/30/19 06:27 Respiratory Rate 20 07/30/19 06:27 Blood Pressure 117/67 07/30/19 06:27 O2 Sat by Pulse Oximetry (%) 97 07/29/19 21:00 Constitutional: Yes: No Distress, Calm Cardiovascular: Yes: S1, S2 Respiratory: Yes: Regular, CTA Bilaterally Gastrointestinal: Yes: Normal Bowel Sounds, Soft Musculoskeletal: Yes: WNL Extremities: Yes: Erythema (resolving), Other Integumentary: Yes: Erythema (resolving) Neurological: Yes: Alert, Oriented Psychiatric: Yes: Alert, Oriented Labs: CBC, BMP 07/28/19 06:42 07/28/19 06:42 Assessment/Plan LE cellulitis Chronic back pain - awaiting thoraco-lumbar fusion COPD DM HTN HLD CHF plan continue current mgmt can switch to po
[2019-07-30] MEDS ORDERED: PT OWN MED DRAWER 7, Y5N ONE (10:11)
[2019-07-30] MEDS: TORSEMIDE 10 MG TABLET PO SCH (10:26)
[2019-07-30] MEDS: DOXYCYCLINE HYCLATE 100 MG CAPSULE PO SCH ×2 (10:26→17:49)
[2019-07-30] MEDS: PARoxetine HCL 10 MG TABLET PO SCH (10:26)
[2019-07-30] MEDS: oxyCODONE HCL 5 MG TABLET PO PRN ×2 (10:27→21:31)
[2019-07-30] MEDS: BUDESONIDE/FORMETEROL FUMARATE 160/4.5 mcg INHALER IH SCH ×2 (10:29→21:34)
[2019-07-30] MEDS: FLUTICASONE PROP 0.05% 16 GM NASAL SPRAY NS SCH ×2 (10:29→21:34)
[2019-07-30] MEDS: MUPIROCIN 2% TOPICAL OINTMENT 22 GM TUBE TP SCH ×2 (10:30→21:34)
--- NOTE | 2019-07-30 20:06 | PN ---
Progress Note, Physician Chief Complaint: back pain - Current Medication List Current Medications: Active Medications Aripiprazole (Abilify) 5 mg PO HS [facility] Last Admin: 07/29/19 21:10 Dose: 5 mg Atorvastatin Calcium (Lipitor -) 20 mg PO HS [facility] Last Admin: 07/29/19 21:10 Dose: 20 mg Budesonide/Formoterol Fumarate (Symbicort 160/4.5mcg -) 2 puff IH BID [facility] Last Admin: 07/30/19 10:29 Dose: 2 puff Doxycycline Hyclate (Vibramycin -) 100 mg PO BID@1000,1800 [facility] Last Admin: 07/30/19 17:49 Dose: 100 mg Fentanyl (Sublimaze Injection -) 50 mcg IVPUSH [id number] PRN PRN Reason: PAIN-PACU ORDER X 4 DOSES ONLY Fluticasone Propionate (Flonase -) 1 spray NS BID [facility] Last Admin: 07/30/19 10:29 Dose: 1 spray Hydroxyzine HCl (Atarax -) 25 mg PO [facility] Last Admin: 07/29/19 21:10 Dose: 25 mg Insulin Detemir (Levemir Vial) 10 units SQ AM [facility] Last Admin: 07/30/19 06:24 Dose: 10 units Liraglutide (Victoza -) 0.6 mg SQ DAILY@0700 [facility] Last Admin: 07/30/19 06:24 Dose: 0.6 mg Mupirocin (Bactroban 2% Ointment -) 1 applic TP BID [facility] Last Admin: 07/30/19 10:30 Dose: 1 applic Ondansetron HCl (Zofran Injection) 4 mg IVPUSH Q6H PRN PRN Reason: NAUSEA AND/OR VOMITING Oxycodone HCl (Roxicodone -) 10 mg PO Q4H PRN PRN Reason: PAIN LEVEL 6-10 Last Admin: 07/30/19 10:27 Dose: 10 mg Paroxetine HCl (Paxil -) 10 mg PO DAILY [facility] Last Admin: 07/30/19 10:26 Dose: 10 mg Tizanidine HCl (Tizanidine Hcl) 2 mg PO TID [facility] Last Admin: 07/30/19 14:44 Dose: 2 mg Torsemide (Demadex -) 10 mg PO DAILY [facility] Last Admin: 07/30/19 10:26 Dose: 10 mg - Objective Vital Signs: Vital Signs Temperature 98.2 F 07/30/19 17:06 Pulse Rate 58 L 07/30/19 17:06 Respiratory Rate 20 07/30/19 17:06 Blood Pressure 100/60 07/30/19 17:06 O2 Sat by Pulse Oximetry (%) 97 07/29/19 21:00 Constitutional: Yes: Well Nourished, No Distress Eyes: Yes: WNL HENT: Yes: WNL Neck: Yes: WNL Cardiovascular: Yes: WNL Respiratory: Yes: WNL Gastrointestinal: Yes: WNL Genitourinary: Yes: WNL Musculoskeletal: Yes: Back Pain Extremities: Yes: WNL Edema: Yes Peripheral Pulses WNL: Yes Integumentary: Yes: Erythema Neurological: Yes: WNL ...Motor Strength: WNL Psychiatric: Yes: WNL Labs: CBC, BMP 07/28/19 06:42 07/28/19 06:42 Assessment/Plan 63F pre-op for thoraco-lumbar instrumented fusion. case cancelled due to florid B/L lower extremity cellulitis. LE cellulitis seems to be worsening today. ID clearance appreciated. -cont pain management. incentive spirometry. -GI, DVT prophylaxis. mechanical only. -HLD: on lipitor. -type 2 DM: on levemir, victoza, RISS. has couple episodes of AM hypoglycemia. PM levemir dose stopped. AM glucose levels improved. -chronic COPD: cont bronchodilators. -major anxiety and depression: on abilify, paxil. -chronic diastolic CHF: cont torsemide. no SONNY/ARB/aldactone due to hypotension. -oral diet -OOB as tolerated -assessment and plan discussed with pt . labs and meds reviewed phone calls answered throughout the day. 25 min
[2019-07-30] MEDS: ARIPiprazole 5 MG TABLET (FP) PO SCH (21:31)
[2019-07-30] MEDS: ATORVASTATIN CA 20 MG TABLET (FP) PO SCH (21:31)
[2019-07-30] MEDS: hydrOXYzine HCL 25 MG TABLET (FP) PO SCH (21:31)
[2019-07-31] MEDS: TIZANIDINE HCL 2 MG TABLET PO SCH ×3 (05:41→22:46)
[2019-07-31] MEDS: INSULIN (LEVEMIR) 100 UNITS/ML UNITS SQ SCH (06:09)
[2019-07-31] MEDS: LIRAGLUTIDE 0.6 MG/0.1 ML PEN.INJCTR SQ SCH (06:10)
--- NOTE | 2019-07-31 08:55 | PN ---
Progress Note, Physician History of Present Illness: stable no new issues - Current Medication List Current Medications: Active Medications Amoxicillin/Clavulanate Potassium (Augmentin - 875mg Tablet) 1 tab PO BID@0800, 1730 [facility] Aripiprazole (Abilify) 5 mg PO [facility] Last Admin: 07/30/19 21:31 Dose: 5 mg Atorvastatin Calcium (Lipitor -) 20 mg PO HS [facility] Last Admin: 07/30/19 21:31 Dose: 20 mg Budesonide/Formoterol Fumarate (Symbicort 160/4.5mcg -) 2 puff IH BID [facility] Last Admin: 07/30/19 21:34 Dose: 2 puff Fentanyl (Sublimaze Injection -) 50 mcg IVPUSH [id number] PRN PRN Reason: PAIN-PACU ORDER X 4 DOSES ONLY Fluticasone Propionate (Flonase -) 1 spray NS BID [facility] Last Admin: 07/30/19 21:34 Dose: 1 spray Hydroxyzine HCl (Atarax -) 25 mg PO [facility] Last Admin: 07/30/19 21:31 Dose: 25 mg Insulin Detemir (Levemir Vial) 10 units SQ AM [facility] Last Admin: 07/31/19 06:09 Dose: 10 units Liraglutide (Victoza -) 0.6 mg SQ DAILY@0700 [facility] Last Admin: 07/31/19 06:10 Dose: 0.6 mg Mupirocin (Bactroban 2% Ointment -) 1 applic TP BID [facility] Last Admin: 07/30/19 21:34 Dose: 1 applic Ondansetron HCl (Zofran Injection) 4 mg IVPUSH Q6H PRN PRN Reason: NAUSEA AND/OR VOMITING Oxycodone HCl (Roxicodone -) 10 mg PO Q4H PRN PRN Reason: PAIN LEVEL 6-10 Last Admin: 07/30/19 21:31 Dose: 10 mg Paroxetine HCl (Paxil -) 10 mg PO DAILY [facility] Last Admin: 07/30/19 10:26 Dose: 10 mg Tizanidine HCl (Tizanidine Hcl) 2 mg PO TID [facility] Last Admin: 07/31/19 05:41 Dose: 2 mg Torsemide (Demadex -) 10 mg PO DAILY [facility] Last Admin: 07/30/19 10:26 Dose: 10 mg - Objective Vital Signs: Vital Signs Temperature 100.4 F H 07/30/19 23:30 Pulse Rate 58 L 07/30/19 17:06 Respiratory Rate 20 07/30/19 17:06 Blood Pressure 100/60 07/30/19 17:06 O2 Sat by Pulse Oximetry (%) 97 07/29/19 21:00 Constitutional: Yes: No Distress, Calm Cardiovascular: Yes: S1, S2 Respiratory: Yes: Regular, CTA Bilaterally Gastrointestinal: Yes: Normal Bowel Sounds, Soft Musculoskeletal: Yes: WNL Extremities: Yes: Other Neurological: Yes: Alert, Oriented Psychiatric: Yes: Alert, Oriented Labs: CBC, BMP 07/28/19 06:42 07/28/19 06:42 Assessment/Plan LE cellulitis Chronic back pain - awaiting thoraco-lumbar fusion COPD DM HTN HLD CHF plan continue current mgmt switched to po
[2019-07-31] MEDS: PARoxetine HCL 10 MG TABLET PO SCH (10:38)
[2019-07-31] MEDS: oxyCODONE HCL 5 MG TABLET PO PRN ×2 (10:38→20:26)
[2019-07-31] MEDS: TORSEMIDE 10 MG TABLET PO SCH (10:38)
[2019-07-31] MEDS: FLUTICASONE PROP 0.05% 16 GM NASAL SPRAY NS SCH ×2 (10:40→22:35)
[2019-07-31] MEDS: BUDESONIDE/FORMETEROL FUMARATE 160/4.5 mcg INHALER IH SCH ×2 (10:40→22:36)
[2019-07-31] MEDS: MUPIROCIN 2% TOPICAL OINTMENT 22 GM TUBE TP SCH ×2 (10:41→22:35)
--- NOTE | 2019-07-31 14:03 | PN ---
Progress Note (short form) - Note Progress Note: 63yo F consulted to vascular/wound care service for bilateral cellulitis and leg swelling. Pt had presented to the hospital for outpatient spine surgery and was found to have b/l leg cellulitis. Pt was admitted to the hospital for abx. Pt states that she is feeling much better that swelling and redness have improved. Pt denies fever, chills, n/v Last Vital Signs Temp Pulse Resp BP Pulse Ox 100.4 F H 58 L 20 100/60 97 07/30/19 23:30 07/30/19 17:06 07/30/19 17:06 07/30/19 17:06 07/29/19 21:00 CBC, BMP 07/28/19 06:42 07/28/19 06:42 PE: Gen: A&O x3 Resp: breathing comfortably LE: b/l erythema to shins with +2 edema Lt>Rt, feet warm and pink. Problem List - Problems (1) Cellulitis of leg without foot Assessment/Plan: Plan -pt appears to be improving continue abx as per ID -pt should have compression dressing once cellulitis has cleared and follow up in wound care clinic with Dr. Ashley as an outpatient. Code(s): L03.119 - CELLULITIS OF UNSPECIFIED PART OF LIMB
[2019-07-31] MEDS: AMOX TR/POT CLAV 875MG/125MG TABLETS (FP) PO SCH (17:42)
--- NOTE | 2019-07-31 20:05 | PN ---
Progress Note, Physician Chief Complaint: back pain - Current Medication List Current Medications: Active Medications Amoxicillin/Clavulanate Potassium (Augmentin - 875mg Tablet) 1 tab PO BID@0800, 1730 [facility] Last Admin: 07/31/19 17:42 Dose: 1 tab Aripiprazole (Abilify) 5 mg PO [facility] Last Admin: 07/30/19 21:31 Dose: 5 mg Atorvastatin Calcium (Lipitor -) 20 mg PO [facility] Last Admin: 07/30/19 21:31 Dose: 20 mg Budesonide/Formoterol Fumarate (Symbicort 160/4.5mcg -) 2 puff IH BID [facility] Last Admin: 07/31/19 10:40 Dose: 2 puff Fentanyl (Sublimaze Injection -) 50 mcg IVPUSH [id number] PRN PRN Reason: PAIN-PACU ORDER X 4 DOSES ONLY Fluticasone Propionate (Flonase -) 1 spray NS BID [facility] Last Admin: 07/31/19 10:40 Dose: 1 spray Hydroxyzine HCl (Atarax -) 25 mg PO [facility] Last Admin: 07/30/19 21:31 Dose: 25 mg Insulin Detemir (Levemir Vial) 10 units SQ AM [facility] Last Admin: 07/31/19 06:09 Dose: 10 units Liraglutide (Victoza -) 0.6 mg SQ DAILY@0700 [facility] Last Admin: 07/31/19 06:10 Dose: 0.6 mg Mupirocin (Bactroban 2% Ointment -) 1 applic TP BID [facility] Last Admin: 07/31/19 10:41 Dose: 1 applic Ondansetron HCl (Zofran Injection) 4 mg IVPUSH Q6H PRN PRN Reason: NAUSEA AND/OR VOMITING Paroxetine HCl (Paxil -) 10 mg PO DAILY [facility] Last Admin: 07/31/19 10:38 Dose: 10 mg Tizanidine HCl (Tizanidine Hcl) 2 mg PO TID [facility] Last Admin: 07/31/19 15:18 Dose: 2 mg Torsemide (Demadex -) 10 mg PO DAILY [facility] Last Admin: 07/31/19 10:38 Dose: 10 mg - Objective Vital Signs: Vital Signs Temperature 98.2 F 07/31/19 17:20 Pulse Rate 64 07/31/19 17:20 Respiratory Rate 20 07/31/19 17:20 Blood Pressure 116/71 07/31/19 17:20 O2 Sat by Pulse Oximetry (%) 97 07/29/19 21:00 Constitutional: Yes: Well Nourished, No Distress, Calm Eyes: Yes: WNL HENT: Yes: WNL Neck: Yes: WNL Cardiovascular: Yes: WNL Respiratory: Yes: WNL Gastrointestinal: Yes: WNL ...Rectal Exam: Yes: Deferred Genitourinary: Yes: WNL Musculoskeletal: Yes: Back Pain Extremities: Yes: Erythema Edema: Yes Peripheral Pulses WNL: Yes Integumentary: Yes: Erythema, Venous Stasis Changes Neurological: Yes: WNL Psychiatric: Yes: WNL Labs: CBC, BMP 07/28/19 06:42 07/28/19 06:42 Assessment/Plan 63F pre-op for thoraco-lumbar instrumented fusion. case cancelled due to florid B/L lower extremity cellulitis. cont PO antibiotics as per ID. ID clearance appreciated. vascular recommends outpatient f/u/ -cont pain management. incentive spirometry. -GI, DVT prophylaxis. mechanical only. -HLD: on lipitor. -type 2 DM: on levemir, victoza, RISS. has couple episodes of AM hypoglycemia. PM levemir dose stopped. AM glucose levels improved. -chronic COPD: cont bronchodilators. -major anxiety and depression: on abilify, paxil. -chronic diastolic CHF: cont torsemide. no SONNY/ARB/aldactone due to hypotension. -oral diet -OOB as tolerated -assessment and plan discussed with pt . labs and meds reviewed phone calls answered throughout the day. 25 min DC home vs surgery during this admission. awaiting ortho decision.
[2019-07-31] MEDS: ATORVASTATIN CA 20 MG TABLET (FP) PO SCH (22:35)
[2019-07-31] MEDS: hydrOXYzine HCL 25 MG TABLET (FP) PO SCH (22:35)
[2019-07-31] MEDS: ARIPiprazole 5 MG TABLET (FP) PO SCH (22:35)
[2019-08-01] MEDS ORDERED: PT OWN MED DRAWER 7, Y5N ONE ×4 (05:26→12:21)
[2019-08-01] MEDS: INSULIN (LEVEMIR) 100 UNITS/ML UNITS SQ SCH (06:34)
[2019-08-01] MEDS: TIZANIDINE HCL 2 MG TABLET PO SCH ×2 (06:36→14:13)
[2019-08-01] MEDS: LIRAGLUTIDE 0.6 MG/0.1 ML PEN.INJCTR SQ SCH (06:36)
[2019-08-01 07:05] VITALS: TEMP 98.2
[2019-08-01 07:15] LABS: EOS % 1.3 % (0-4.5); HEMATOCRIT 36.7 % (32.4-45.2); HEMOGLOBIN 11.9 GM/dL (10.7-15.3); LYMPH % 48.6 % (8-40); MCH 26.5 pg (25.7-33.7); MCHC 32.3 g/dl (32.0-36.0); MEAN CELL VOLUME 82.1 fl (80-96); MEAN PLT VOLUME 8.3 fl (7.5-11.1); MONO % 9.2 % (3.8-10.2); NEUT % 39.9 % (42.8-82.8); PLATELET COUNT 145 K/MM3 (134-434); RBC 4.47 M/mm3 (3.60-5.2); RDW 23.5 % (11.6-15.6); WHITE BLOOD COUNT 3.5 K/mm3 (4.0-10.0)
[2019-08-01 07:20] LABS: BLOOD UREA NITROGEN 30.1 mg/dL (7-18); CALCIUM 9.3 mg/dL (8.5-10.1); CREATININE 1.1 mg/dL (0.55-1.3); POTASSIUM 4.2 mmol/L (3.5-5.1)
[2019-08-01] MEDS: oxyCODONE HCL 5 MG TABLET PO PRN ×2 (08:11→14:12)
[2019-08-01] MEDS: AMOX TR/POT CLAV 875MG/125MG TABLETS (FP) PO SCH ×2 (08:11→17:28)
[2019-08-01] MEDS: FLUTICASONE PROP 0.05% 16 GM NASAL SPRAY NS SCH (09:36)
[2019-08-01] MEDS: TORSEMIDE 10 MG TABLET PO SCH (09:36)
[2019-08-01] MEDS: PARoxetine HCL 10 MG TABLET PO SCH (09:36)
[2019-08-01] MEDS: BUDESONIDE/FORMETEROL FUMARATE 160/4.5 mcg INHALER IH SCH (09:37)
[2019-08-01] MEDS: MUPIROCIN 2% TOPICAL OINTMENT 22 GM TUBE TP SCH (09:37)
[2019-08-01 09:50] LABS: ANISOCYTOSIS 1+; MACROCYTOSIS 0; PLATELET ESTIMATE DECREASED
--- NOTE | 2019-08-01 10:56 | PN ---
Progress Note, Physician History of Present Illness: patient stable legs still red but stable - Current Medication List Current Medications: Active Medications Amoxicillin/Clavulanate Potassium (Augmentin - 875mg Tablet) 1 tab PO BID@0800, 1730 [facility] Last Admin: 08/01/19 08:11 Dose: 1 tab Aripiprazole (Abilify) 5 mg PO [facility] Last Admin: 07/31/19 22:35 Dose: 5 mg Atorvastatin Calcium (Lipitor -) 20 mg PO [facility] Last Admin: 07/31/19 22:35 Dose: 20 mg Budesonide/Formoterol Fumarate (Symbicort 160/4.5mcg -) 2 puff IH BID [facility] Last Admin: 08/01/19 09:37 Dose: 2 puff Fluticasone Propionate (Flonase -) 1 spray NS BID [facility] Last Admin: 08/01/19 09:36 Dose: 1 spray Hydroxyzine HCl (Atarax -) 25 mg PO [facility] Last Admin: 07/31/19 22:35 Dose: 25 mg Insulin Detemir (Levemir Vial) 10 units SQ AM [facility] Last Admin: 08/01/19 06:34 Dose: 10 units Liraglutide (Victoza -) 0.6 mg SQ DAILY@0700 [facility] Last Admin: 08/01/19 06:36 Dose: 0.6 mg Mupirocin (Bactroban 2% Ointment -) 1 applic TP BID [facility] Last Admin: 08/01/19 09:37 Dose: 1 applic Ondansetron HCl (Zofran Injection) 4 mg IVPUSH Q6H PRN PRN Reason: NAUSEA AND/OR VOMITING Oxycodone HCl (Roxicodone -) 10 mg PO Q6H PRN PRN Reason: PAIN LEVEL 7 - 10 Last Admin: 08/01/19 08:11 Dose: 10 mg Paroxetine HCl (Paxil -) 10 mg PO DAILY [facility] Last Admin: 08/01/19 09:36 Dose: 10 mg Tizanidine HCl (Tizanidine Hcl) 2 mg PO TID [facility] Last Admin: 08/01/19 06:36 Dose: 2 mg Torsemide (Demadex -) 10 mg PO DAILY [facility] Last Admin: 08/01/19 09:36 Dose: 10 mg - Objective Vital Signs: Vital Signs Temperature 98.2 F 08/01/19 07:04 Pulse Rate 52 L 08/01/19 07:04 Respiratory Rate 20 08/01/19 07:04 Blood Pressure 135/74 08/01/19 07:04 O2 Sat by Pulse Oximetry (%) 97 07/29/19 21:00 Constitutional: Yes: No Distress, Calm Cardiovascular: Yes: Regular Rate and Rhythm Respiratory: Yes: Regular, CTA Bilaterally Gastrointestinal: Yes: Normal Bowel Sounds, Soft Musculoskeletal: Yes: Other Extremities: Yes: Other Wound/Incision: Yes: Other Neurological: Yes: Alert, Oriented Psychiatric: Yes: Alert, Oriented Labs: CBC, BMP 08/01/19 06:05 08/01/19 06:05 Assessment/Plan LE cellulitis Chronic back pain - awaiting thoraco-lumbar fusion COPD DM HTN HLD CHF plan continue current mgmt switched to po will add doxy
--- NOTE | 2019-08-01 11:38 | PN ---
Progress Note, Physician Chief Complaint: back pain - Current Medication List Current Medications: Active Medications Amoxicillin/Clavulanate Potassium (Augmentin - 875mg Tablet) 1 tab PO BID@0800, 1730 [facility] Last Admin: 08/01/19 08:11 Dose: 1 tab Aripiprazole (Abilify) 5 mg PO [facility] Last Admin: 07/31/19 22:35 Dose: 5 mg Atorvastatin Calcium (Lipitor -) 20 mg PO HS [facility] Last Admin: 07/31/19 22:35 Dose: 20 mg Budesonide/Formoterol Fumarate (Symbicort 160/4.5mcg -) 2 puff IH BID [facility] Last Admin: 08/01/19 09:37 Dose: 2 puff Doxycycline Hyclate (Vibramycin -) 100 mg PO BID@1000,1800 [facility] Fluticasone Propionate (Flonase -) 1 spray NS BID [facility] Last Admin: 08/01/19 09:36 Dose: 1 spray Hydroxyzine HCl (Atarax -) 25 mg PO [facility] Last Admin: 07/31/19 22:35 Dose: 25 mg Insulin Detemir (Levemir Vial) 10 units SQ AM [facility] Last Admin: 08/01/19 06:34 Dose: 10 units Liraglutide (Victoza -) 0.6 mg SQ DAILY@0700 [facility] Last Admin: 08/01/19 06:36 Dose: 0.6 mg Mupirocin (Bactroban 2% Ointment -) 1 applic TP BID [facility] Last Admin: 08/01/19 09:37 Dose: 1 applic Ondansetron HCl (Zofran Injection) 4 mg IVPUSH Q6H PRN PRN Reason: NAUSEA AND/OR VOMITING Oxycodone HCl (Roxicodone -) 10 mg PO Q6H PRN PRN Reason: PAIN LEVEL 7 - 10 Last Admin: 08/01/19 08:11 Dose: 10 mg Paroxetine HCl (Paxil -) 10 mg PO DAILY [facility] Last Admin: 08/01/19 09:36 Dose: 10 mg Tizanidine HCl (Tizanidine Hcl) 2 mg PO TID [facility] Last Admin: 08/01/19 06:36 Dose: 2 mg Torsemide (Demadex -) 10 mg PO DAILY [facility] Last Admin: 08/01/19 09:36 Dose: 10 mg - Objective Vital Signs: Vital Signs Temperature 98.2 F 08/01/19 07:04 Pulse Rate 52 L 08/01/19 07:04 Respiratory Rate 20 08/01/19 07:04 Blood Pressure 135/74 08/01/19 07:04 O2 Sat by Pulse Oximetry (%) 97 07/29/19 21:00 Labs: CBC, BMP 08/01/19 06:05 08/01/19 06:05 Assessment/Plan 63F pre-op for thoraco-lumbar instrumented fusion. case cancelled due to florid B/L lower extremity cellulitis. cont PO antibiotics as per ID. doxy added by ID. ID clearance appreciated. vascular recommends outpatient f/u/ -cont pain management. incentive spirometry. -GI, DVT prophylaxis. mechanical only. -HLD: on lipitor. -type 2 DM: on levemir, victoza, RISS. has couple episodes of AM hypoglycemia. PM levemir dose stopped. AM glucose levels improved. -chronic COPD: cont bronchodilators. -major anxiety and depression: on abilify, paxil. -chronic diastolic CHF: cont torsemide. no SONNY/ARB/aldactone due to hypotension. -oral diet -OOB as tolerated -assessment and plan discussed with pt . labs and meds reviewed phone calls answered throughout the day. 25 min discussed case with Dr Vivas. Pt cleared to go home and follow up with them outpatient.
[2019-08-01] MEDS: DOXYCYCLINE HYCLATE 100 MG CAPSULE PO SCH ×2 (12:32→17:28)
[2019-08-01 17:23] VITALS: BP 102/68; PULSE 71
== END 2019-08-01 17:45 | disposition home or self-care (01) | DRG 383 ==
LOC: JSAMEDAYSX 07-21 07:06 → J8W 07-21 14:30
PROVIDERS: ADMIT Orthopaedic Surgery Orthopaedic Surgery of the Spine; ATTEND Orthopaedic Surgery Orthopaedic Surgery of the Spine
DX: L03.116 Cellulitis of left lower limb (principal); L03.115 Cellulitis of right lower limb; J44.9 Chronic obstructive pulmonary disease, unspecified; F41.8 Other specified anxiety disorders; I11.0 Hypertensive heart disease with heart failure; I50.32 Chronic diastolic (congestive) heart failure; E11.9 Type 2 diabetes mellitus without complications; E78.5 Hyperlipidemia, unspecified; M54.89 Other dorsalgia; M48.061 Spinal stenosis, lumbar region without neurogenic claudication; E11.649 Type 2 diabetes mellitus with hypoglycemia without coma; Z53.8 Procedure and treatment not carried out for other reasons
CPT/HCPCS: 36415; 80048; 80053; 82962; 85025; 85651; 86140; 86850; 86900; 86901; 97116-GP; 97162-GP; J1644

== ENCOUNTER 2021-05-03 04:16 | Day surgery (SDC) | payer OTHER ==
[2021-05-03 09:04] VITALS: BP 147/69; PULSE 78; TEMP 97.7
== END 2021-05-03 12:02 | disposition home or self-care (01) ==
LOC: J2C 04:16 → JASU-SURG 04:16 → UNDOADMIN 04:16 → JASU-SURG 12:02 → UNDODISIN 12:02 → EDSTATUS 13:00
PROVIDERS: ATTEND Orthopaedic Surgery Orthopaedic Surgery of the Spine
DX: Z53.8 Procedure and treatment not carried out for other reasons (principal)
CPT/HCPCS: 86850; 86900; 86901